=== PATIENT | female | born 1935 | race Caucasian/White ===

== ENCOUNTER 2017-06-28 06:25 | Day surgery (SDC) | payer OTHER ==
[2017-06-27 10:03] VITALS: BMI 27.3
[2017-06-28] MEDS ORDERED: fentaNYL CITRATE 250 MCG/5 ML VIAL ONE (07:02)
[2017-06-28] MEDS ORDERED: ePHEDrine SULFATE 50 MG/1 ML AMPULE ONE (07:02)
[2017-06-28] MEDS ORDERED: PROPOFOL 20 ML ONE ×3 (07:03)
[2017-06-28] MEDS ORDERED: MIDAZOLAM HCL 2 MG/2 ML SINGLE DOSE VIAL ONE (07:03)
[2017-06-28] MEDS ORDERED: SUCCINYLCHOLINE CHLORIDE 200 MG/10 ML VIAL ONE (07:03)
[2017-06-28] MEDS ORDERED: ROCURONIUM BROMIDE 50 MG/5 ML VIAL ONE (07:03)
[2017-06-28] MEDS ORDERED: LIDOCAINE HCL/PF 2% SDV 5ML VIAL ONE (07:04)
[2017-06-28] MEDS ORDERED: KETOROLAC TROMETHAMINE 30 MG/1 ML VIAL ONE (07:04)
[2017-06-28] MEDS ORDERED: DEXAMETHASONE SOD PHOSPHATE 4 MG/1 ML VIAL ONE (07:04)
[2017-06-28] MEDS ORDERED: ceFAZolin SODIUM 1 GM VIAL ONE (07:04)
[2017-06-28] MEDS ORDERED: LIDOCAINE HCL 1%, 10 MG/ML (20ML VIAL) ONE ×3 (07:22→08:20)
[2017-06-28] MEDS ORDERED: LEVOFLOXACIN 500 MG PREMIX BAG IVPB ONE (08:00)
--- NOTE | 2017-06-28 09:05 | HP ---
History & Physical Update - History History: No Change - Physical Physical: No Change - Assessment Assessment: No Change - Plan Plan: No Change
[2017-06-28] MEDS ORDERED: ONDANSETRON 4 MG/2 ML VIAL IVPUSH PRN (09:08)
[2017-06-28] MEDS ORDERED: ACETAMINOPHEN 325 MG TABLET (FP) PO PRN (09:08)
[2017-06-28] MEDS ORDERED: LACTATED RINGERS SOLUTION 1,000 ML IV SCH (09:15)
[2017-06-28 09:17] VITALS: TEMP 98
[2017-06-28 12:34] VITALS: BP 117/55; PULSE 84
--- NOTE | 2017-06-29 07:17 | OP ---
DATE OF OPERATION: 06/28/2017 PREOPERATIVE DIAGNOSIS: Right breast cancer. POSTOPERATIVE DIAGNOSIS: Right breast cancer. PROCEDURE: Right breast reexcision lumpectomy. SURGEON: Dorothy Carl MD ANESTHESIA: Local, IV sedation. ESTIMATED BLOOD LOSS: Minimal. COMPLICATIONS: None. This was a sterile procedure. INDICATION FOR PROCEDURE: Patient had an excision of a mass seen on mammography in the upper outer right breast. Pathology shows a 7-mm invasive ductal carcinoma with a positive margin. Therefore, my recommendation is a reexcision lumpectomy. The procedure was discussed with all the questions answered. PROCEDURE IN DETAIL: Patient brought to [facility], taken into the operating room where after IV sedation and IV antibiotics the right breast was prepped and draped in the usual sterile fashion. The area in the upper outer right breast in the area of the prior incision was anesthetized with 1% lidocaine without epinephrine. The prior incision was sharply reopened and the seroma cavity was entered and suctioned out. A full-thickness lumpectomy was performed to include all the avalos of the prior lumpectomy. This was tagged with a long stitch lateral, short stitch superior and I took it down to Pathology to orient it for them. I felt there was part of the cavity left posteriorly laterally, so I took a new lateral margin with a stitch at the old margin as well as a new inferior margin with a stitch at the old margin. These were all sent to Pathology for permanent section. Hemostasis assured with electrocautery. The parenchyma approximated with interrupted 2-0 Vicryl. Skin approximated with interrupted 2-0 Vicryl, running 4-0 Monocryl. A sterile dressing of a Tegaderm, 4 x 4's applied. She tolerated the procedure well, was taken to recovery in good condition. DOROTHY CARL M.D. [id number]
--- NOTE | 2017-07-02 15:01 | PATH ---
Surgical Pathology Report Patient Name: NHAN THAKUR [facility]. Rec. #: [id number] /Age/Gender: 1935 (Age: 81) / F Account: [id number] Location: [facility] Taken: 06/28/2017 Received: 06/28/2017 Reported: 07/02/2017 Physicians: Dorothy Smith M.D. Specimen(s) Received A: RIGHT BREAST RE-EXCISION LUMPECTOMY B: RIGHT BREAST NEW LATERAL MARIGN C: RIGHT BREAST NEW INFERIOR MARGIN Clinical History Invasive Final Diagnosis A. BREAST, RIGHT, RE-EXCISION LUMPECTOMY: BENIGN BREAST TISSUE WITH STROMAL FIBROSIS AND CHANGES OF PRIOR PROCEDURE. NO CARCINOMA IDENTIFIED. B. BREAST, RIGHT, NEW LATERAL MARGIN, EXCISION: BENIGN BREAST TISSUE WITH CHANGES OF PRIOR PROCEDURE. NO CARCINOMA IDENTIFIED. C. BREAST, RIGHT, NEW INFERIOR MARGIN, EXCISION: BENIGN BREAST TISSUE WITH CHANGES OF PRIOR PROCEDURE. NO CARCINOMA IDENTIFIED. Electronically Signed Monica Ryan M.D. Gross Description A. Received in formalin labeled "right breast reexcision lumpectomy," is a 5.7 x 5.7 x 2.3 cm toney-yellow, irregular portion of fibroadipose tissue with a short suture marking the superior aspect and a long suture marking the lateral aspect of the specimen, per the surgeon. There is no needle localization wire present. There is no skin or nipple present. The specimen displays an exposed biopsy cavity with defects at the deep, inferior and anterior margins. The specimen is inked as follows: Superior and lateral blue; inferior green; medial yellow; anterior red; deep black. The specimen is serially sectioned from medial to lateral. Sectioning reveals foci of fibrous tissue and fat necrosis. No definitive mass is identified. Statistical Methods Teacher sections are submitted in 22 cassettes as follows: 1-medial margin; 2-6-biopsy cavity with anterior margin sequentially submitted from medial to lateral; 7-11-biopsy cavity with deep margin sequentially submitted from medial to lateral; 41-63-fthezlod margin sequentially submitted from medial to lateral; 52-66-nvmrzgsc margin sequentially submitted from medial to lateral; 16-61-lrrtrwn margin. Total formalin fixation time: Approximately 9 hours B. Received in formalin labeled "right breast new lateral margin," is a 2.5 x 2.0 x 0.8 cm irregular portion of fibroadipose tissue with a suture marking the old margin, per the surgeon. The new margin is inked blue and the specimen is serially sectioned. The specimen is entirely submitted in 3 cassettes. C. Received in formalin labeled "right breast new inferior margin," is a 3.5 x 3.2 x 0.8 cm irregular portion of fibroadipose tissue with a suture marking the old margin, per the surgeon. The new margin is inked blue and the specimen is serially sectioned. The specimen is entirely and sequentially submitted in 5 cassettes. 06/28/2017 [facility]06/28/2017
== END 2017-06-28 11:15 | disposition home or self-care (01) ==
LOC: JASU-SURG 06:25
PROVIDERS: ATTEND Surgery
PROC: 0HBT0ZZ Excision of Right Breast, Open Approach (ICD-10-PCS; principal; 2017-06-28 08:00)
DX: C50.911 Malignant neoplasm of unspecified site of right female breast (principal)
CPT/HCPCS: 88307-TC; 94760

== ENCOUNTER 2018-07-24 05:07 | Inpatient (IN) | payer OTHER ==
[2018-07-24 05:46] VITALS: BMI 28.3
[2018-07-24] MEDS ORDERED: SODIUM CHLORIDE 1,000 ML IV STA (05:50)
[2018-07-24 06:14] LABS: BASO % 1.1 % (0-2.0); EOS % 7.2 % (0-4.5); HEMATOCRIT 38.9 % (32.4-45.2); HEMOGLOBIN 13.1 GM/dL (10.7-15.3); LYMPH % 32.6 % (8-40); MCH 30.3 pg (25.7-33.7); MCHC 33.7 g/dl (32.0-36.0); MEAN CELL VOLUME 89.9 fl (80-96); MEAN PLT VOLUME 8.6 fl (7.5-11.1); MONO % 7.5 % (3.8-10.2); NEUT % 51.6 % (42.8-82.8); PLATELET COUNT 292 K/MM3 (134-434); RBC 4.33 M/mm3 (3.60-5.2); RDW 14.6 % (11.6-15.6); WHITE BLOOD COUNT 8.8 K/mm3 (4.0-10.0)
[2018-07-24 06:16] LABS: VENOUS PH 7.4 (7.32-7.42); VENOUS PO2 79.9 mmHg (28-48)
--- NOTE | 2018-07-24 06:23 | PDOC ---
History of Present Illness - General Chief Complaint: Chest Pain Stated Complaint: CHEST DISCOMFORT Time Seen by Provider: 07/24/18 06:00 History Source: Patient Exam Limitations: No Limitations - History of Present Illness Initial Comments: 07/24/18 06:18 82YOF with h/o HTN, CAD, angina now s/p CABG 2 years ago at [facility], echo last week, told she had 2-vessel occlusion, not stented for this per her report. BIBEMS for onset of left-sided chest pressure radiating down LUE which started while at rest at 1 am today, feels exactly the same as her prior angina, and associated with SOB which she also has with her chronic angina. States she has been having angina off and on for the past few years. Took no extra ASA or other medications for her symptoms after the onset. Denies any f/c/n/d/v/c, sweats, weakness, numbness, tingling, neck pain, back pain, headache, vision change, abdominal pain, or other symptoms. Features Reporter is Dr. Rivera. Has only gone to [facility] once or twice for procedures but otherwise gets her cardiac care here. Past History - Past Medical History Allergies/Adverse Reactions: Allergies Allergy/AdvReac Type Severity Reaction Status Date / Time penicillin G Allergy Intermediate Rash Verified 07/24/18 05:46 Sulfa (Sulfonamide Allergy Intermediate Rash Verified 07/24/18 05:46 Antibiotics) [Sulfa(Sulfonamide Antibiotics)] Home Medications: Ambulatory Orders Clonazepam [Klonopin] 1 mg PO BID 07/29/15 Metoprolol Succinate [Toprol XL -] 25 mg PO DAILY 07/29/15 Venlafaxine HCl ER [Effexor Xr -] 150 mg PO DAILY 07/29/15 Quetiapine Fumarate [Seroquel -] 25 mg PO HS 03/18/16 Acetaminophen W/ Codeine #3 [Tylenol # 3 -] 1 - 2 tab PO Q6H PRN #10 tablet MDD 6 pills 06/14/17 Ascorbate Calcium/Bioflavonoid [Maribel-C 1,000 mg Tablet] 500 mg PO DAILY Aspirin [Aspirin EC] 81 mg PO DAILY 06/14/17 Atorvastatin Ca [Lipitor] 40 mg PO DAILY 06/14/17 Mirtazapine 15 mg PO DAILY 06/14/17 Multivit-Min/FA/Lycopen/Lutein [Centrum Silver Tablet] 1 each PO DAILY 06/14/17 Anemia: No Asthma: No Cancer: Yes (LT BREAST) Cardiac Disorders: Yes (h/o palpitations, ARRHYTHMIAS) CVA: No COPD: No CHF: No Dementia: No Diabetes: No GI Disorders: Yes (PEPTIC ULCER, DIVERTICULOSIS, COLON POLYPS) Disorders: No HTN: Yes Hypercholesterolemia: Yes Liver Disease: No Seizures: No Thyroid Disease: No - Surgical History Cardiac Surgery: Yes (BYPASS SURGERY 2016) - Suicide/Smoking/Psychosocial Hx Smoking History: Never smoked Have you smoked in the past 12 months: No Information on smoking cessation initiated: No Hx Alcohol Use: No Drug/Substance Use Hx: No Substance Use Type: None Hx Substance Use Treatment: No Cardiac Specific PMH - Complaint Specific PMHX Pacemaker: No Review of Systems - Review of Systems Able to Perform ROS?: Yes Comments:: 07/24/18 06:32 GEN: no fever, chills, malaise, generalized weakness, or weight change HEENT: no ear pain, sore throat, vision change, or eye pain CV: chest pain, no palpitations, lightheadedness, syncope, or edema RESP: SOB, no cough, no wheezing GI: no abdominal pain, nausea, vomiting, diarrhea, constipation, or white/black/ bloody stool : no dysuria, hematuria, incontinence, retention, bleeding, or discharge MSK: arm pain, no neck/back pain, muscle weakness/pain, or joint swelling/pain NEURO: no headache, seizure, vertigo, numbness, tingling, or focal weakness PSYCH: no substance use, no behavior change SKIN: no jaundice, no rash ROS otherwise negative except as noted in HPI *Physical Exam - Vital Signs Last Vital Signs Temp Pulse Resp BP Pulse Ox 98.3 F 73 19 122/67 97 07/25/18 10:22 07/25/18 10:22 07/25/18 10:22 07/25/18 10:22 07/25/18 09:00 - Physical Exam Comments: 07/24/18 06:32 GENERAL: a bit anxious but well-appearing and comfortable, pleasant, A/Ox4, no distress, answers questions appropriately, resting tremor to head, on nasal cannula 4 LPM satting 96% HEENT: PERRLA, EOMI, moist mucous membranes NECK/BACK: no midline ttp, no spinal stepoff or deformity, no hematoma, full ROM , neck supple CARDIOVASCULAR: regular rate/rhythm, normal S1S2, no MGR, strong peripheral pulses, capillary refill <2 seconds, extremities wwp, no edema LUNGS/RESPIRATORY: no respiratory distress, CTAB GI/ABDOMEN: symmetric ogja-nh-gotc, normoactive BS, soft, no ttp, no midline pulsatile masses : no CVA tenderness EXTREMITIES: no muscle atrophy, no acute deformity SKIN: warm and dry, no pallor, no jaundice, no rash, no bruising, no skin breakdown, no cuts, no lesions NEUROLOGICAL: GCS 15, CN II-XII grossly intact, 5/5 strength proximally and distally, no facial droop Heart Score/ECG Review - History History: Moderately suspicious - Electrocardiogram EKG: Normal - Age Age: >/= 65 - Risk Factors Risk Factors Heart Score: Yes Hx Hypercholesterolemia, Yes Hx Hypertension, No Hx Diabetes, No Smoking History, Yes Positive family hx of cardiac disease, No Hx Obesity Based on the list above the patient has:: >/=3 risk factors or Hx atherosclerotic disease - Troponin Troponin: 1-3x normal limit - Score Heart Score - Total: 6 #1 07/24/18 05:08 NSR, rate 72, normal axis and intervals, deep Q in III and V1 which are old compared with 05/23/17, TWI in III which is old compared with 05/23/17, otherwise no ST-T changes Moderate Sedation - Procedure Monitoring Vital Signs: Procedure Monitoring Vital Signs Temperature 98.3 F 07/25/18 10:22 Pulse Rate 73 07/25/18 10:22 Respiratory Rate 19 07/25/18 10:22 Blood Pressure 122/67 07/25/18 10:22 O2 Sat by Pulse Oximetry (%) 97 07/25/18 09:00 ED Treatment Course - LABORATORY CBC & Chemistry Diagram: 07/24/18 05:50 07/25/18 05:30 - ADDITIONAL ORDERS Additional order review: 07/24/18 05:50 RBC 4.33 MCV 89.9 MCHC 33.7 RDW 14.6 MPV 8.6 Neutrophils % 51.6 Lymphocytes % 32.6 Monocytes % 7.5 Eosinophils % 7.2 H Basophils % 1.1 - RADIOLOGY Radiology Studies Ordered: Category Date Time Status CHEST X-RAY PORTABLE* [RAD] Stat Radiology 07/24/18 05:50 Completed - Medications Given in the ED: ED Medications Discontinued Medications Generic Name Dose Route Start Last Admin Trade Name Santa PRN Reason Stop Dose Admin Aspirin 81 mg 07/24/18 12:00 07/24/18 12:30 Asa - PO 81 mg DAILY AMELIA Administration Furosemide 40 mg 07/24/18 15:02 07/24/18 16:41 Lasix - PO 07/24/18 15:03 40 mg ONCE ONE Administration Sodium Chloride 1,000 mls @ 1,000 mls/hr 07/24/18 05:50 07/24/18 06:19 Normal Saline - IV 07/24/18 06:49 1,000 mls/hr ASDIR STA Administration Medical Decision Making - Medical Decision Making Adult female Pt with known CAD p/w chest pain. Initial Vital Signs Temp Pulse Resp BP Pulse Ox 98 F 73 19 131/56 L 96 07/24/18 05:07 07/24/18 05:07 07/24/18 05:07 07/24/18 05:07 07/24/18 05:07 Exam: As noted in Physical Exam section. DDX IBNLT: ACS, pericarditis, tamponade, aortic dissection, AAA, PTX, PE, esophageal tear, esophagitis (e.g. pill, infectious), esophageal stricture, esophageal FB, gastritis, PUD, pancreatitis, cholecystitis, cholangitis, colitis , bowel perforation, PNA/bronchitis, pleurisy, pleuritis, MVP, pulmonary HTN, musculoskeletal, panic/anxiety, etc. W/U ordered: CBCD CMP Mg Phos Lipase Troponin CK CKMB Coags T&S Blood gas UA UCx EKG CXR. TX ordered: monitor EKG: Reviewed; results as noted in ECG Review section. CXR: Sternal wires noted, cardiomegaly, weak inspiration, nothing acute. Laboratory Tests 07/24/18 07/24/18 07/24/18 05:50 05:50 05:50 WBC 8.8 RBC 4.33 Hgb 13.1 Hct 38.9 MCV 89.9 MCH 30.3 MCHC 33.7 RDW 14.6 Plt Count 292 MPV 8.6 Absolute Neuts (auto) 4.6 Neutrophils % 51.6 Lymphocytes % 32.6 Monocytes % 7.5 Eosinophils % 7.2 H Basophils % 1.1 Nucleated RBC % 0 PT with INR 12.00 INR 1.02 PTT (Actin FS) 31.1 VBG pH POC VBG pCO2 POC VBG pO2 Mixed VBG HCO3 Sodium 140 Potassium 4.2 Chloride 107 Carbon Dioxide 26 Anion Gap 8 BUN 24 H Creatinine 0.9 Creat Clearance w eGFR > 60 Random Glucose 140 H Calcium 9.0 Magnesium 2.3 Total Bilirubin 0.2 AST 19 ALT 30 Alkaline Phosphatase 140 H Creatine Kinase 38 Troponin I 0.04 B-Natriuretic Peptide 170.2 Total Protein 7.6 Albumin 3.3 L Lipase 112 Blood Type Antibody Screen 07/24/18 07/24/18 05:50 05:50 WBC RBC Hgb Hct MCV MCH MCHC RDW Plt Count MPV Absolute Neuts (auto) Neutrophils % Lymphocytes % Monocytes % Eosinophils % Basophils % Nucleated RBC % PT with INR INR PTT (Actin FS) VBG pH 7.40 POC VBG pCO2 40.0 POC VBG pO2 79.9 H Mixed VBG HCO3 24.0 Sodium Potassium Chloride Carbon Dioxide Anion Gap BUN Creatinine Creat Clearance w eGFR Random Glucose Calcium Magnesium Total Bilirubin AST ALT Alkaline Phosphatase Creatine Kinase Troponin I B-Natriuretic Peptide Total Protein Albumin Lipase Blood Type Cancelled Antibody Screen Cancelled 07/24/18 08:[address] Rivera, Dr. Melgar is paged (recycling collections driver). Decision to Admit order placed. Vital Signs Temperature 98 F 07/24/18 05:07 Pulse Rate 75 07/24/18 08:27 Respiratory Rate 19 07/24/18 05:07 Blood Pressure 131/56 L 07/24/18 05:07 O2 Sat by Pulse Oximetry (%) 98 07/24/18 08:27 07/24/18 09:[address] Rivera's office, page sent to Dr. Dean who is recycling collections driver for them now. I also placed a page overhead. 07/24/18 09:[address] Dean and Dr. Baker. Patient admitted to Inpatient Tele, consult order placed. *DC/Admit/Observation/Transfer Diagnosis at time of Disposition: Chest pain Qualifiers: Chest pain type: chest pain due to myocardial ischemia Ischemic chest pain type : stable angina pectoris Qualified Code(s): I20.8 - Other forms of angina pectoris - Discharge Dispostion Condition at time of disposition: Guarded Decision to Admit order: Yes - Referrals - Patient Instructions - Post Discharge Activity
[2018-07-24 06:30] LABS: INR 1.02 (0.83-1.09)
[2018-07-24 06:32] LABS: ACTIVATED PTT 31.1 SECONDS (25.2-36.5)
[2018-07-24 07:41] LABS: ALBUMIN 3.3 g/dl (3.4-5.0); ALK PHOS 140 U/L (45-117); ANION GAP 8 MMOL/L (8-16); BILIRUBIN,TOTAL 0.2 mg/dL (0.2-1); BLOOD UREA NITROGEN 24 mg/dL (7-18); CHLORIDE 107 mmol/L (98-107); CO2 26 mmol/L (21-32); CREATININE 0.9 mg/dL (0.55-1.3); GLUCOSE,RANDOM 140 mg/dL (74-106); LIPASE 112 U/L (73-393); MAGNESIUM 2.3 mg/dL (1.8-2.4); N-TERMINAL BNP 170.2 pg/ml (5-450); POTASSIUM 4.2 mmol/L (3.5-5.1); SGOT/AST 19 U/L (15-37); SGPT/ALT 30 U/L (13-61); SODIUM 140 mmol/L (136-145); TOT PROT 7.6 g/dl (6.4-8.2)
--- NOTE | 2018-07-24 07:44 | PDOC ---
Attending Attestation - Resident Resident Name: Yana Neal - HPI HPI: 07/24/18 09:10 Pt presents to the ED complaining of chest pain that started last night. Pain was pressure like and severe. Patient is now chest pain free. Extensive history of cardiac disease as described in resident note. - Physicial Exam PE: 07/24/18 09:15 Agree with resident exam. PAtient is alert and oriented and in no acute distress. Lungs are clear. Heart regular rate and rhythm. abdomen soft, non tender and non distended. 07/24/18 09:15 - Medical Decision Making 07/24/18 09:19 Pt presents to the ED complaining of chest pain that has now resolved. Extensive history of cardiac disease. EKG shows no evidence of new ischemia. Will check labs and cardiac enzymes, admit to medicine for cardiac work up. Case discussed with Dr. Dean who will evaluate the patient.
--- NOTE | 2018-07-24 11:29 | CON.CARD ---
Consult Consult Specialty:: Cardiology Referred by:: Miguel Baker MD Reason for Consultation:: Chest pain - History of Present Illness Chief Complaint: Chest pain History of Present Illness: 82 yo CAD s/p CABG 06/19/2016 (MORALES->mid LAD, SVG->LAD-D1, SVG-LCx-OM1/OM2 and SVG->RPDA) with neg MPI for ischemia November 06, 2017, recent C 07/2018 demonstrating patent MORALES->LAD, SVG->LCx-OM1/OM2, occluded SVG->LAD-D1, SVG-> RPDA, diastolic dysfunction, hy[ertensive heart disease, hyperlipidemia, moderate carotid stenosis, BPV, GERD, RA, last seen in office 07/11/2018 for persistence of RICE and chest discomfort. She denies palpitations, near or true syncope, orthopnea, PND or LE edema. Intolerance to Ranexa in past? - History Source History Provided By: Patient Limitations to Obtaining History: No Limitations - Past Medical History Cardio/Vascular: Yes: HTN, Hyperlipdemia Pulmonary: Yes: Other (cough) Musculoskeletal: Yes: Chronic low back pain, Osteoarthritis, Other (Upper extremity and thoracic ) Rheumatology: Yes: Vasculitis (vague past Hx?) Dermatology: Yes: Other (pruritis of the LE) - Past Surgical History Past Surgical History: Yes: Breast Biopsy (Lt breast surg) - Alcohol/Substance Use Hx Alcohol Use: No - Smoking History Smoking history: Never smoked Have you smoked in the past 12 months: No Home Medications - Allergies Allergies/Adverse Reactions: Allergies Allergy/AdvReac Type Severity Reaction Status Date / Time penicillin G Allergy Intermediate Rash Verified 07/24/18 05:46 Sulfa (Sulfonamide Allergy Intermediate Rash Verified 07/24/18 05:46 Antibiotics) [Sulfa(Sulfonamide Antibiotics)] - Home Medications Home Medications: Ambulatory Orders Clonazepam [Klonopin] 1 mg PO BID 07/29/15 Metoprolol Succinate [Toprol XL -] 25 mg PO DAILY 07/29/15 Venlafaxine HCl ER [Effexor Xr -] 150 mg PO DAILY 07/29/15 Quetiapine Fumarate [Seroquel -] 25 mg PO HS 03/18/16 Acetaminophen W/ Codeine #3 [Tylenol # 3 -] 1 - 2 tab PO Q6H PRN #10 tablet MDD 6 pills 06/14/17 Ascorbate Calcium/Bioflavonoid [Maribel-C 1,000 mg Tablet] 500 mg PO DAILY Aspirin [Aspirin EC] 81 mg PO DAILY 06/14/17 Atorvastatin Ca [Lipitor] 40 mg PO DAILY 06/14/17 Mirtazapine 15 mg PO DAILY 06/14/17 Multivit-Min/FA/Lycopen/Lutein [Centrum Silver Tablet] 1 each PO DAILY 06/14/17 Review of Systems - Review of Systems Cardiovascular: reports: Chest Pain, Shortness of Breath Respiratory: reports: SOB on Exertion Vital Signs: Vital Signs Temperature 98 F 07/24/18 05:07 Pulse Rate 75 07/24/18 08:27 Respiratory Rate 19 07/24/18 05:07 Blood Pressure 131/56 L 07/24/18 05:07 O2 Sat by Pulse Oximetry (%) 98 07/24/18 08:27 Constitutional: Yes: No Distress, Calm Neck: Yes: Supple Respiratory: Yes: Regular, CTA Bilaterally Gastrointestinal: Yes: Normal Bowel Sounds, Soft Cardiovascular: Yes: Regular Rate and Rhythm JVD: No Carotid Bruit: No Heart Sounds: Yes: S1, S2 Edema: No - Other Data Labs, Other Data: CBC, BMP 07/24/18 05:50 07/24/18 05:50 INR, PTT INR 1.02 (0.83-1.09) 07/24/18 05:50 Troponin, BNP 07/24/18 07/24/18 05:50 09:50 Troponin I 0.04 0.07 H B-Natriuretic Peptide 170.2 Troponin, BNP 07/24/18 07/24/18 05:50 09:50 Troponin I 0.04 0.07 H B-Natriuretic Peptide 170.2 NSR Ejection Fraction %: LVEF > or = 40 % Imaging - Results Chest X-ray: Report Reviewed (NAD) Problem List - Problems (1) Coronary artery disease Code(s): I25.10 - ATHSCL HEART DISEASE OF [place] CORONARY ARTERY W/O ANG PCTRS Qualifiers: Coronary Disease-Associated Artery/Lesion type: [place] artery [place] vs. transplanted heart: [place] heart Associated angina: with stable angina Qualified Code(s): I25.118 - Atherosclerotic heart disease of [place] coronary artery with other forms of angina pectoris (2) S/P CABG (coronary artery bypass graft) Code(s): Z95.1 - PRESENCE OF AORTOCORONARY BYPASS GRAFT (3) Hypertensive heart disease Code(s): I11.9 - HYPERTENSIVE HEART DISEASE WITHOUT HEART FAILURE Qualifiers: Heart failure presence: without heart failure Qualified Code(s): I11.9 - Hypertensive heart disease without heart failure (4) Diastolic dysfunction Code(s): I51.9 - HEART DISEASE, UNSPECIFIED (5) Angina pectoris Code(s): I20.9 - ANGINA PECTORIS, UNSPECIFIED (6) Chest pain Code(s): R07.9 - CHEST PAIN, UNSPECIFIED Qualifiers: Chest pain type: chest pain due to myocardial ischemia Ischemic chest pain type: stable angina pectoris Qualified Code(s): I20.8 - Other forms of angina pectoris (7) Hyperlipidemia Code(s): E78.5 - HYPERLIPIDEMIA, UNSPECIFIED Qualifiers: Hyperlipidemia type: pure hypercholesterolemia Qualified Code(s): E78.00 - Pure hypercholesterolemia, unspecified; E78.0 - Pure hypercholesterolemia (8) SOB (shortness of breath) Code(s): R06.02 - SHORTNESS OF BREATH Assessment/Plan Echo: 10/24/2017 Normal LV size and fxn, LVEF 60-65%, mild LAE, mild-mod MR, TR , RVSP 34 mmHg Pharm stress: 11/06/2017 No ischemia, LVEF 84% 07/2018 LHC: 3 vessel CAD, patent MORALES->LAD, SVG->OM1/OM2, occluded SVG->LAD-D1 , SVG->RPDA 1. Persistent RICE and exterional chest discomfort referable to CAD s/p CABG with occluded SVG->D1, SVG->RPDA, angina pectoris with negative MPI for ischemia 2. Diastolic dysfunction 3. Hypertensive heart disease 4. Mixed hyperlipidemia 5. Glucose interolance 6. Demand ischemia P:1. Trend troponins to document peak 2. Continue ASA 81 qd, Lipitor 40 qd, Imdur 60 qd, d/c HCTZ 25 qd, increase Toprol 50 qd, rechallenge Ranexa 500 bid 3. Given occluded grafts which cannot be revascularized, will optimize medical regimen, consider RCA [employer]EARCH [employer]IMAL ATTENDANT PCI if still symptomatic 4. Thank you for consultative opportunity
--- NOTE | 2018-07-24 11:55 | EKG ---
Test Reason : Blood Pressure : / mmHG Vent. Rate : 072 BPM Atrial Rate : 072 BPM P-R Int : 156 ms QRS Dur : 062 ms QT Int : 400 ms P-R-T Axes : 060 -02 041 degrees QTc Int : 438 ms NORMAL SINUS RHYTHM MINIMAL VOLTAGE CRITERIA FOR LVH, MAY BE NORMAL VARIANT INFERIOR INFARCT , AGE UNDETERMINED ABNORMAL ECG WHEN COMPARED WITH ECG OF 23-MAY-2017 12:09, NO SIGNIFICANT CHANGE WAS FOUND Confirmed by SURYA LIEBERMAN, JONELLE ([id number]) on 07/24/2018 11:54:58 AM Referred By: Confirmed By:JONELLE LONDON MD
[2018-07-24] MEDS ORDERED: ASPIRIN 81 MG CHEWABLE TABLETS PO SCH (12:00)
[2018-07-24] MEDS: RANOLAZINE E.R. 500 MG TABLET (FP) PO SCH ×2 (12:30→21:42)
--- NOTE | 2018-07-24 14:17 | HP ---
Admitting History and Physical - Primary Care Physician PCP: Miguel Baker - Admission Chief Complaint: resting chest pain History of Present Illness: 82YOF with h/o HTN, CAD, angina now s/p CABG 2 years ago at [facility] for onset of resting left-sided chest pressure radiating down LUE which started while at 1 am today while in bed, feels exactly the same as her prior angina. 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 She did feel some improvement with the addition of nitrates but this did not last. She states that she underwent what is described as PTCA sevceral weeks ago that may have shown occlusion of her coronary grafts. Worsening af the anginal Sx developed sometime after the holiday now to the point where it was no longer exertional but at rest which prompted her to come to the ER. The pain was steady, radiating to the LUE and associated with dizziness, sweats. She denies cough, n-v, abd pains , gas, heart burn. History Source: Patient Limitations to Obtaining History: No Limitations - Past Medical History Cardiovascular: Yes: HTN, Hyperlipdemia Pulmonary: Yes: Other (cough) Gastrointestinal: Yes: GERD Heme/Onc: Yes: Cancer (Breast), Other (Hx Lt breast cancer) Psych: Yes: Anxiety Musculoskeletal: Yes: Chronic low back pain, Osteoarthritis, Other (Upper extremity and thoracic ) Rheumatology: Yes: Vasculitis (vague past Hx?) Endocrine: Yes: Other (Glucose intolerance) Dermatology: Yes: Other (pruritis of the LE) - Past Surgical History Past Surgical History: Yes: Breast Biopsy (Lt breast surg), CABG - Smoking History Smoking history: Never smoked Have you smoked in the past 12 months: No - Alcohol/Substance Use Hx Alcohol Use: No History of Substance Use: reports: None - Social History Usual Living Arrangement: Yes: With Spouse ADL: Family Assistance History of Recent Travel: No Home Medications - Allergies Allergies/Adverse Reactions: Allergies Allergy/AdvReac Type Severity Reaction Status Date / Time penicillin G Allergy Intermediate Rash Verified 07/24/18 05:46 Sulfa (Sulfonamide Allergy Intermediate Rash Verified 07/24/18 05:46 Antibiotics) [Sulfa(Sulfonamide Antibiotics)] - Home Medications Home Medications: Ambulatory Orders Clonazepam [Klonopin] 1 mg PO BID 07/29/15 Metoprolol Succinate [Toprol XL -] 25 mg PO DAILY 07/29/15 Venlafaxine HCl ER [Effexor Xr -] 150 mg PO DAILY 07/29/15 Quetiapine Fumarate [Seroquel -] 25 mg PO HS 03/18/16 Acetaminophen W/ Codeine #3 [Tylenol # 3 -] 1 - 2 tab PO Q6H PRN #10 tablet MDD 6 pills 06/14/17 Ascorbate Calcium/Bioflavonoid [Maribel-C 1,000 mg Tablet] 500 mg PO DAILY Aspirin [Aspirin EC] 81 mg PO DAILY 06/14/17 Atorvastatin Ca [Lipitor] 40 mg PO DAILY 06/14/17 Mirtazapine 15 mg PO DAILY 06/14/17 Multivit-Min/FA/Lycopen/Lutein [Centrum Silver Tablet] 1 each PO DAILY 06/14/17 Family Disease History - Family Disease History Family History: Unremarkable Review of Systems - Review of Systems Constitutional: reports: Diaphoresis Eyes: reports: No Symptoms HENT: reports: No Symptoms Neck: reports: No Symptoms Cardiovascular: reports: Chest Pain Respiratory: reports: SOB Gastrointestinal: reports: No Symptoms Genitourinary: reports: Dysuria (? UTI) Breasts: reports: No Symptoms Reported Musculoskeletal: reports: No Symptoms Integumentary: reports: No Symptoms Neurological: reports: No Symptoms Endocrine: reports: No Symptoms Hematology/Lymphatic: reports: No Symptoms Psychiatric: reports: Anxiety Physical Examination Vital Signs: Vital Signs Temperature 98.2 F 07/24/18 13:37 Pulse Rate 75 07/24/18 13:37 Respiratory Rate 20 07/24/18 13:37 Blood Pressure 133/66 07/24/18 13:37 O2 Sat by Pulse Oximetry (%) 97 07/24/18 13:37 Findings/Remarks: skin--no rashes eyes--EOMI, anicteric oral--no droop; NL mucosa neck--supple, no masses lungs--no rales, unlabored heart--distant chest--OHS abd--obese, benign, NT, ND /rect--deferred ext--trace edema; warm to touch; no ischemic changes; periph pedal pulses dimnished neuro--alert, anxious, coherent; good eye contact; no gross motor/sens deficits Labs: CBC, BMP 07/24/18 05:50 07/24/18 05:50 Imaging - Results Chest X-ray: Report Reviewed EKG: Report Reviewed Problem List - Problems (1) Angina pectoris Assessment/Plan: 2nd ischemia (occluded grafts--2 of 5?); PLAN: maximize anti-anginal agents as per cardio no need for a/c (not CS). PLAN: cont BB; Ntg; watch troponin; cont Statin Code(s): I20.9 - ANGINA PECTORIS, UNSPECIFIED (2) Hypertensive heart disease Assessment/Plan: adjust meds as needed (see cardio note) Code(s): I11.9 - HYPERTENSIVE HEART DISEASE WITHOUT HEART FAILURE Qualifiers: Heart failure presence: without heart failure Qualified Code(s): I11.9 - Hypertensive heart disease without heart failure (3) S/P CABG (coronary artery bypass graft) Assessment/Plan: 2 years ago; but has been plagued with anginal Sx in the past several months. recent angiogram reveals 2 of the 5 vessels occluded. Code(s): Z95.1 - PRESENCE OF AORTOCORONARY BYPASS GRAFT (4) Breast cancer Assessment/Plan: Dx'd 1 year ago; recent mammogram was "negative" (under care of oncologist) PLAN : cont Arimidex Code(s): C50.919 - MALIGNANT NEOPLASM OF UNSP SITE OF UNSPECIFIED FEMALE BREAST Qualifiers: Breast location: unspecified site of breast Estrogen receptor status: positive Patient sex: female Laterality: unspecified laterality Qualified Code(s): C50.919 - Malignant neoplasm of unspecified site of unspecified female breast; Z17.0 - Estrogen receptor positive status [ER+] (5) Hyperlipidemia Assessment/Plan: cont statin; may need top dose; check level Code(s): E78.5 - HYPERLIPIDEMIA, UNSPECIFIED Qualifiers: Hyperlipidemia type: pure hypercholesterolemia Qualified Code(s): E78.00 - Pure hypercholesterolemia, unspecified; E78.0 - Pure hypercholesterolemia (6) UTI (urinary tract infection) Assessment/Plan: had been just rx'd AB; has no SX; will check UA Code(s): N39.0 - URINARY TRACT INFECTION, SITE NOT SPECIFIED Qualifiers: Indwelling urinary catheter type: unspecified (7) Glucose intolerance (impaired glucose tolerance) Assessment/Plan: A1c had been under 7.0; will recheck; may need tighter control if A1c 7 or above Code(s): R73.02 - IMPAIRED GLUCOSE TOLERANCE (ORAL) (8) Anxiety Assessment/Plan: with panic features and depressive component; will cont all Psych meds Code(s): F41.9 - ANXIETY DISORDER, UNSPECIFIED Assessment/Plan 82YOF with h/o HTN, CAD, with unstable angina s/p CABG who now has 2-vessel occlusion, who wiull need med adjustment prior to contemplating any additional procedure ~~~~~~~~~~~~~~~~~~~ Dr Baker.
[2018-07-24] MEDS ORDERED: NITROGLYCERIN SUBLINGUAL 1/200 0.3 MG BTL SL PRN (14:57)
[2018-07-24] MEDS ORDERED: FUROSEMIDE 40 MG TABLET (FP) PO ONE (15:02)
[2018-07-24] MEDS ORDERED: ALPRAZolam 0.25 MG TABLET PO PRN (15:04)
[2018-07-24] MEDS: clonazePAM 0.5 MG TABLET PO SCH ×2 (15:04→21:42)
[2018-07-24] MEDS: ISOSORBIDE MONONITRATE 60 MG TAB.SR.24H (FP) PO SCH (17:05)
[2018-07-24] MEDS ORDERED: FUROSEMIDE 40 MG/4 ML INJECTABLE VIAL ONE (17:39)
[2018-07-24 18:31] LABS: URINE APPEARANCE CLEAR; URINE BILIRUBIN NEGATIVE (<2.0 mg/dL); URINE COLOR STRAW; URINE GLUCOSE (UA) NEGATIVE (NEGATIVE); URINE KETONE NEGATIVE (NEGATIVE); URINE LEUK ESTERASE NEGATIVE (NEGATIVE); URINE NITRITE NEGATIVE (NEGATIVE); URINE PROTEIN NEGATIVE (NEGATIVE); URINE UROBILINOGEN NEGATIVE mg/dL (0.2-1.0)
[2018-07-24] MEDS: ATORVASTATIN CA 40 MG TABLET (FP) PO SCH (21:42)
[2018-07-24] MEDS: MIRTAZAPINE 15 MG TABLET (FP) PO SCH (21:43)
[2018-07-24] MEDS: QUEtiapine FUMARATE 25 MG TABLET (FP) PO SCH (21:49)
[2018-07-25 07:08] LABS: ANION GAP 6 MMOL/L (8-16); BLOOD UREA NITROGEN 19 mg/dL (7-18); CALCIUM 9.3 mg/dL (8.5-10.1); CHLORIDE 104 mmol/L (98-107); CO2 30 mmol/L (21-32); CREATININE 0.9 mg/dL (0.55-1.3); GLUCOSE,RANDOM 119 mg/dL (74-106); POTASSIUM 4.3 mmol/L (3.5-5.1); SODIUM 140 mmol/L (136-145)
[2018-07-25] MEDS ORDERED: LOSARTAN POTASSIUM 50 MG TABLET (FP) PO SCH (10:00)
[2018-07-25] MEDS: VENLAFAXINE HCL 75 MG E.R. CAPSULES (FP) PO SCH (10:21)
[2018-07-25] MEDS: clonazePAM 0.5 MG TABLET PO SCH ×2 (10:21→22:47)
[2018-07-25] MEDS: RANOLAZINE E.R. 500 MG TABLET (FP) PO SCH ×2 (10:21→22:47)
[2018-07-25] MEDS: ANASTROZOLE 1 MG TABLET PO SCH (10:21)
[2018-07-25] MEDS: ASPIRIN 325 MG ENTERIC COATED TABLET (FP) PO SCH (10:21)
[2018-07-25] MEDS: CLOPIDOGREL BISULFATE 75 MG TABLET (FP) PO SCH (10:21)
--- NOTE | 2018-07-25 12:25 | PN ---
Progress Note, Physician History of Present Illness: Denies RICE or angina with ambulation. - Current Medication List Current Medications: Active Medications Alprazolam (Xanax -) 0.25 mg PO DAILY PRN PRN Reason: ANXIETY Anastrozole (Arimidex -) 1 mg PO DAILY [facility] Last Admin: 07/25/18 10:21 Dose: 1 mg Aspirin (Ecotrin -) 325 mg PO DAILY [facility] Last Admin: 07/25/18 10:21 Dose: 325 mg Atorvastatin Calcium (Lipitor -) 40 mg PO HS [facility] Last Admin: 07/24/18 21:42 Dose: 40 mg Clonazepam (Klonopin -) 0.5 mg PO BID [facility] Last Admin: 07/25/18 10:21 Dose: 0.5 mg Clopidogrel Bisulfate (Plavix -) 75 mg PO DAILY [facility] Last Admin: 07/25/18 10:21 Dose: 75 mg Isosorbide Mononitrate (Imdur -) 60 mg PO DAILY@1700 [facility] Last Admin: 07/24/18 17:05 Dose: 60 mg Losartan Potassium (Cozaar -) 50 mg PO DAILY [facility] Last Admin: 07/25/18 10:21 Dose: 50 mg Metoprolol Succinate (Toprol Xl -) 50 mg PO DAILY [facility] Last Admin: 07/25/18 10:21 Dose: 50 mg Mirtazapine (Remeron -) 7.5 mg PO [facility] Last Admin: 07/24/18 21:43 Dose: 7.5 mg Nitroglycerin (Nitrostat -) 0.3 mg SL Q5M PRN PRN Reason: FOR CHEST PAIN Quetiapine Fumarate (Seroquel -) 25 mg PO [facility] Last Admin: 07/24/18 21:49 Dose: Not Given Ranolazine (Ranexa -) 500 mg PO BID [facility] Last Admin: 07/25/18 10:21 Dose: 500 mg Venlafaxine HCl (Effexor Xr -) 150 mg PO DAILY [facility] Last Admin: 07/25/18 10:21 Dose: 150 mg - Objective Vital Signs: Vital Signs Temperature 98.3 F 07/25/18 10:22 Pulse Rate 73 07/25/18 10:22 Respiratory Rate 19 07/25/18 10:22 Blood Pressure 122/67 07/25/18 10:22 O2 Sat by Pulse Oximetry (%) 97 07/25/18 09:00 Constitutional: Yes: No Distress, Calm Neck: Yes: Supple Cardiovascular: Yes: Regular Rate and Rhythm Respiratory: Yes: Regular, CTA Bilaterally Gastrointestinal: Yes: Normal Bowel Sounds, Soft Edema: No Labs: CBC, BMP 07/24/18 05:50 07/25/18 05:30 INR, PTT INR 1.02 (0.83-1.09) 07/24/18 05:50 Problem List - Problems (1) Coronary artery disease Code(s): I25.10 - ATHSCL HEART DISEASE OF [place] CORONARY ARTERY W/O ANG PCTRS Qualifiers: Coronary Disease-Associated Artery/Lesion type: [place] artery [place] vs. transplanted heart: [place] heart Associated angina: with stable angina Qualified Code(s): I25.118 - Atherosclerotic heart disease of [place] coronary artery with other forms of angina pectoris (2) S/P CABG (coronary artery bypass graft) Code(s): Z95.1 - PRESENCE OF AORTOCORONARY BYPASS GRAFT (3) Hypertensive heart disease Code(s): I11.9 - HYPERTENSIVE HEART DISEASE WITHOUT HEART FAILURE Qualifiers: Heart failure presence: without heart failure Qualified Code(s): I11.9 - Hypertensive heart disease without heart failure (4) Diastolic dysfunction Code(s): I51.9 - HEART DISEASE, UNSPECIFIED (5) Angina pectoris Code(s): I20.9 - ANGINA PECTORIS, UNSPECIFIED (6) Chest pain Code(s): R07.9 - CHEST PAIN, UNSPECIFIED Qualifiers: Chest pain type: chest pain due to myocardial ischemia Ischemic chest pain type: stable angina pectoris Qualified Code(s): I20.8 - Other forms of angina pectoris (7) Hyperlipidemia Code(s): E78.5 - HYPERLIPIDEMIA, UNSPECIFIED Qualifiers: Hyperlipidemia type: pure hypercholesterolemia Qualified Code(s): E78.00 - Pure hypercholesterolemia, unspecified; E78.0 - Pure hypercholesterolemia (8) SOB (shortness of breath) Code(s): R06.02 - SHORTNESS OF BREATH Assessment/Plan Echo: 10/24/2017 Normal LV size and fxn, LVEF 60-65%, mild LAE, mild-mod MR, TR , RVSP 34 mmHg Pharm stress: 11/06/2017 No ischemia, LVEF 84% 07/2018 LHC: 3 vessel CAD, patent MORALES->LAD, SVG->OM1/OM2, occluded SVG->LAD-D1 , SVG->RPDA 1. Persistent RICE and exterional chest discomfort referable to CAD s/p CABG with occluded SVG->D1, SVG->RPDA, angina pectoris with negative MPI for ischemia 2. Diastolic dysfunction 3. Hypertensive heart disease 4. Mixed hyperlipidemia 5. Glucose interolance 6. Demand ischemia P:1. Troponins have peaked 2. Continue ASA 81 qd, Lipitor 40 qd, Plavix 75 qd, Imdur 60 qd, losartan 50 qd , increased Toprol 50 qd and rechallenged Ranexa 500 bid, start Vascepa 2 bid as outpatient 3. Given occluded grafts which cannot be revascularized, will optimize medical regimen, consider RCA ANATOMY PROFESSOR PCI if still symptomatic
[2018-07-25] MEDS ORDERED: ACETAMINOPHEN 500 MG TABLET (FP) PO ONE (15:00)
[2018-07-25] MEDS: ISOSORBIDE MONONITRATE 60 MG TAB.SR.24H (FP) PO SCH ×2 (17:34→17:42)
--- NOTE | 2018-07-25 17:45 | PN ---
Progress Note (short form) - Note Progress Note: Current Medications Alprazolam (Xanax -) 0.25 mg PO DAILY PRN PRN Reason: ANXIETY Anastrozole (Arimidex -) 1 mg PO DAILY [facility] Last Admin: 07/25/18 10:21 Dose: 1 mg Aspirin (Ecotrin -) 325 mg PO DAILY [facility] Last Admin: 07/25/18 10:21 Dose: 325 mg Atorvastatin Calcium (Lipitor -) 40 mg PO HS [facility] Last Admin: 07/24/18 21:42 Dose: 40 mg Clonazepam (Klonopin -) 0.5 mg PO BID [facility] Last Admin: 07/25/18 10:21 Dose: 0.5 mg Clopidogrel Bisulfate (Plavix -) 75 mg PO DAILY [facility] Last Admin: 07/25/18 10:21 Dose: 75 mg Isosorbide Mononitrate (Imdur -) 60 mg PO DAILY@1700 [facility] Last Admin: 07/25/18 17:34 Dose: 60 mg Losartan Potassium (Cozaar -) 50 mg PO DAILY [facility] Last Admin: 07/25/18 10:21 Dose: 50 mg Metoprolol Succinate (Toprol Xl -) 50 mg PO DAILY [facility] Last Admin: 07/25/18 10:21 Dose: 50 mg Mirtazapine (Remeron -) 7.5 mg PO [facility] Last Admin: 07/24/18 21:43 Dose: 7.5 mg Nitroglycerin (Nitrostat -) 0.3 mg SL Q5M PRN PRN Reason: FOR CHEST PAIN Quetiapine Fumarate (Seroquel -) 25 mg PO [facility] Last Admin: 07/24/18 21:49 Dose: Not Given Ranolazine (Ranexa -) 500 mg PO BID [facility] Last Admin: 07/25/18 10:21 Dose: 500 mg Venlafaxine HCl (Effexor Xr -) 150 mg PO DAILY [facility] Last Admin: 07/25/18 10:21 Dose: 150 mg Laboratory Results - last 24 hr 07/24/18 07/25/18 07/25/18 15:45 05:30 05:30 Sodium 140 Potassium 4.3 Chloride 104 Carbon Dioxide 30 Anion Gap 6 L BUN 19 H Creatinine 0.9 Creat Clearance w eGFR > 60 Random Glucose 119 H Hemoglobin A1c % Calcium 9.3 Troponin I < 0.02 Triglycerides 206 H Cholesterol 120 Total LDL Cholesterol 65 HDL Cholesterol 31 L TSH 3.87 H Urine Color Straw Urine Appearance Clear Urine pH 7.0 Ur Specific [place] 1.011 Urine Protein Negative Urine Glucose (UA) Negative Urine Ketones Negative Urine Blood Negative Urine Nitrite Negative Urine Bilirubin Negative Urine Urobilinogen Negative Ur Leukocyte Esterase Negative 07/25/18 05:30 Sodium Potassium Chloride Carbon Dioxide Anion Gap BUN Creatinine Creat Clearance w eGFR Random Glucose Hemoglobin A1c % 6.8 H Calcium Troponin I Triglycerides Cholesterol Total LDL Cholesterol HDL Cholesterol TSH Urine Color Urine Appearance Urine pH Ur Specific [place] Urine Protein Urine Glucose (UA) Urine Ketones Urine Blood Urine Nitrite Urine Bilirubin Urine Urobilinogen Ur Leukocyte Esterase Vital Signs Temperature 97.9 F 07/25/18 14:42 Pulse Rate 68 07/25/18 14:42 Respiratory Rate 18 07/25/18 14:42 Blood Pressure 114/45 L 07/25/18 14:42 O2 Sat by Pulse Oximetry (%) 97 07/25/18 09:00 CC: anxious ``````````````````` skin--NL color; no rashes eyes--EOMI lungs--clear heart--RR ext--trace edema bilat neuro--awake, coherent, no deficits; mood guarded; able to walk on her own; ambulated 100ft and did not develop CP; did feel some SOB at the end of the walk. `````````````````````````` Summ > angina--no resting episodes today; trop all negative; no CP on ambulation as of this time. PLAN: cont current agents > HTN with ASHD--no CHF; BP on low end biut w/o Sx; will stop the ARB for now > DM--vs Pre-DM; a1c is 6.8 and is not on restricted diet so far. PLAN: will check BGMs not on diabetic agent or diet > elevated TSH--mild; t4 level added ``````````````````` Dr Baker Problem List - Problems (1) Angina pectoris Code(s): I20.9 - ANGINA PECTORIS, UNSPECIFIED (2) Hypertensive heart disease Code(s): I11.9 - HYPERTENSIVE HEART DISEASE WITHOUT HEART FAILURE Qualifiers: Heart failure presence: without heart failure Qualified Code(s): I11.9 - Hypertensive heart disease without heart failure (3) S/P CABG (coronary artery bypass graft) Code(s): Z95.1 - PRESENCE OF AORTOCORONARY BYPASS GRAFT (4) Breast cancer Code(s): C50.919 - MALIGNANT NEOPLASM OF UNSP SITE OF UNSPECIFIED FEMALE BREAST Qualifiers: Breast location: unspecified site of breast Estrogen receptor status: positive Patient sex: female Laterality: unspecified laterality Qualified Code(s): C50.919 - Malignant neoplasm of unspecified site of unspecified female breast; Z17.0 - Estrogen receptor positive status [ER+] (5) Hyperlipidemia Code(s): E78.5 - HYPERLIPIDEMIA, UNSPECIFIED Qualifiers: Hyperlipidemia type: pure hypercholesterolemia Qualified Code(s): E78.00 - Pure hypercholesterolemia, unspecified; E78.0 - Pure hypercholesterolemia (6) UTI (urinary tract infection) Code(s): N39.0 - URINARY TRACT INFECTION, SITE NOT SPECIFIED Qualifiers: Indwelling urinary catheter type: unspecified (7) Glucose intolerance (impaired glucose tolerance) Code(s): R73.02 - IMPAIRED GLUCOSE TOLERANCE (ORAL) (8) Anxiety Code(s): F41.9 - ANXIETY DISORDER, UNSPECIFIED
[2018-07-25] MEDS: QUEtiapine FUMARATE 25 MG TABLET (FP) PO SCH (22:47)
[2018-07-25] MEDS: ATORVASTATIN CA 40 MG TABLET (FP) PO SCH (22:47)
[2018-07-25] MEDS: MIRTAZAPINE 15 MG TABLET (FP) PO SCH (22:47)
[2018-07-26 08:45] LABS: ALBUMIN 3.4 g/dl (3.4-5.0); ALK PHOS 130 U/L (45-117); ANION GAP 9 MMOL/L (8-16); BILIRUBIN,TOTAL 0.6 mg/dL (0.2-1); BLOOD UREA NITROGEN 28 mg/dL (7-18); CALCIUM 9.3 mg/dL (8.5-10.1); CHLORIDE 103 mmol/L (98-107); CO2 27 mmol/L (21-32); GLUCOSE,RANDOM 101 mg/dL (74-106); POTASSIUM 4.4 mmol/L (3.5-5.1); SGOT/AST 14 U/L (15-37); SGPT/ALT 23 U/L (13-61); SODIUM 139 mmol/L (136-145); TOT PROT 7.4 g/dl (6.4-8.2)
--- NOTE | 2018-07-26 10:57 | PN ---
Progress Note, Physician Chief Complaint: Events noted Not in distress History of Present Illness: Patient was seen and examined. Awake and alert. Chart was reviewed Denies chest pain, SOB or palpitations - Current Medication List Current Medications: Active Medications Alprazolam (Xanax -) 0.25 mg PO DAILY PRN PRN Reason: ANXIETY Anastrozole (Arimidex -) 1 mg PO DAILY [facility] Last Admin: 07/25/18 10:21 Dose: 1 mg Aspirin (Ecotrin -) 325 mg PO DAILY [facility] Last Admin: 07/25/18 10:21 Dose: 325 mg Atorvastatin Calcium (Lipitor -) 40 mg PO HS [facility] Last Admin: 07/25/18 22:47 Dose: 40 mg Clonazepam (Klonopin -) 0.5 mg PO BID [facility] Last Admin: 07/25/18 22:47 Dose: 0.5 mg Clopidogrel Bisulfate (Plavix -) 75 mg PO DAILY [facility] Last Admin: 07/25/18 10:21 Dose: 75 mg Isosorbide Mononitrate (Imdur -) 60 mg PO DAILY@1700 [facility] Last Admin: 07/25/18 17:42 Dose: Not Given Metoprolol Succinate (Toprol Xl -) 50 mg PO DAILY [facility] Last Admin: 07/25/18 10:21 Dose: 50 mg Mirtazapine (Remeron -) 7.5 mg PO [facility] Last Admin: 07/25/18 22:47 Dose: 7.5 mg Nitroglycerin (Nitrostat -) 0.3 mg SL Q5M PRN PRN Reason: FOR CHEST PAIN Quetiapine Fumarate (Seroquel -) 25 mg PO [facility] Last Admin: 07/25/18 22:47 Dose: Not Given Ranolazine (Ranexa -) 500 mg PO BID [facility] Last Admin: 07/25/18 22:47 Dose: 500 mg Venlafaxine HCl (Effexor Xr -) 150 mg PO DAILY [facility] Last Admin: 07/25/18 10:21 Dose: 150 mg - Objective Vital Signs: Vital Signs Temperature 97.2 F L 07/26/18 06:18 Pulse Rate 67 07/26/18 06:18 Respiratory Rate 16 07/26/18 06:18 Blood Pressure 104/59 L 07/26/18 06:18 O2 Sat by Pulse Oximetry (%) 98 07/25/18 21:00 Eyes: Yes: PERRL HENT: Yes: Atraumatic Neck: Yes: Supple Cardiovascular: Yes: Regular Rate and Rhythm, S1, S2. No: Murmur Respiratory: Yes: CTA Bilaterally Gastrointestinal: Yes: Normal Bowel Sounds, Soft. No: Tenderness Edema: No Additional Findings/Remarks: - Review of Systems Constitutional: denies: Chills, Fever Cardiovascular: denies: Chest Pain. denies: Palpitations, Shortness of Breath Respiratory: denies: Cough. denies: Hemoptysis, Orthopnea, PND, SOB, SOB on Exertion Gastrointestinal: denies: Abdominal Pain, Constipation, Diarrhea, Melena, Nausea , Rectal Bleeding, Vomiting Neurological: denies: Dizziness, Headache, Seizure, Syncope Labs: 07/26/18 06:00 Problem List - Problems (1) Angina pectoris Code(s): I20.9 - ANGINA PECTORIS, UNSPECIFIED (2) Coronary artery disease Code(s): I25.10 - ATHSCL HEART DISEASE OF [place] CORONARY ARTERY W/O ANG PCTRS Qualifiers: Coronary Disease-Associated Artery/Lesion type: [place] artery [place] vs. transplanted heart: [place] heart Associated angina: with stable angina Qualified Code(s): I25.118 - Atherosclerotic heart disease of [place] coronary artery with other forms of angina pectoris (3) Diastolic dysfunction Code(s): I51.9 - HEART DISEASE, UNSPECIFIED (4) Glucose intolerance (impaired glucose tolerance) Code(s): R73.02 - IMPAIRED GLUCOSE TOLERANCE (ORAL) (5) Hypertensive heart disease Code(s): I11.9 - HYPERTENSIVE HEART DISEASE WITHOUT HEART FAILURE Qualifiers: Heart failure presence: without heart failure Qualified Code(s): I11.9 - Hypertensive heart disease without heart failure (6) S/P CABG (coronary artery bypass graft) Code(s): Z95.1 - PRESENCE OF AORTOCORONARY BYPASS GRAFT Assessment/Plan 1. Persistent RICE and chest discomfort referable to CAD s/p CABG with occluded SVG to D1, SVG to RPDA, angina pectoris 2. Diastolic dysfunction 3. Hypertensive heart disease 4. Hypercholesterolemia 5. Glucose interolance 6. Demand ischemia PLAN: 1. Troponins noted 2. Continue ASA, Lipitor, Plavix, Imdur, Losartan, Toprol and Ranexa as tolerated 3. Optimize medical therapy as vein grafts are occluded. If patient continues to be symptomatic, may consider RCA BLOOD BANK SPECIALIST intervention 4. Ambulate Further plans are to follow Ramone Melgar MD
[2018-07-26] MEDS: VENLAFAXINE HCL 75 MG E.R. CAPSULES (FP) PO SCH (10:58)
[2018-07-26] MEDS: ASPIRIN 325 MG ENTERIC COATED TABLET (FP) PO SCH (10:59)
[2018-07-26] MEDS: clonazePAM 0.5 MG TABLET PO SCH ×2 (10:59→21:47)
[2018-07-26] MEDS: CLOPIDOGREL BISULFATE 75 MG TABLET (FP) PO SCH (10:59)
[2018-07-26] MEDS: ANASTROZOLE 1 MG TABLET PO SCH (10:59)
[2018-07-26] MEDS: RANOLAZINE E.R. 500 MG TABLET (FP) PO SCH ×2 (10:59→21:47)
[2018-07-26] MEDS ORDERED: ACETAMINOPHEN 500 MG TABLET (FP) PO ONE (12:30)
[2018-07-26] MEDS ORDERED: ACETAMINOPHEN 325 MG TABLET (FP) PO PRN (14:13)
--- NOTE | 2018-07-26 14:23 | PN ---
Progress Note (short form) - Note Progress Note: Current Medications Acetaminophen (Tylenol -) 650 mg PO Q6H PRN PRN Reason: PAIN LEVEL 1 - 3 Alprazolam (Xanax -) 0.25 mg PO DAILY PRN PRN Reason: ANXIETY Anastrozole (Arimidex -) 1 mg PO DAILY [facility] Last Admin: 07/26/18 10:59 Dose: 1 mg Aspirin (Ecotrin -) 325 mg PO DAILY [facility] Last Admin: 07/26/18 10:59 Dose: 325 mg Atorvastatin Calcium (Lipitor -) 40 mg PO HS [facility] Last Admin: 07/25/18 22:47 Dose: 40 mg Clonazepam (Klonopin -) 0.5 mg PO BID [facility] Last Admin: 07/26/18 10:59 Dose: 0.5 mg Clopidogrel Bisulfate (Plavix -) 75 mg PO DAILY [facility] Last Admin: 07/26/18 10:59 Dose: 75 mg Isosorbide Mononitrate (Imdur -) 30 mg PO [facility] Metoprolol Succinate (Toprol Xl -) 50 mg PO DAILY [facility] Last Admin: 07/26/18 10:59 Dose: 50 mg Mirtazapine (Remeron -) 7.5 mg PO HS [facility] Last Admin: 07/25/18 22:47 Dose: 7.5 mg Nitroglycerin (Nitrostat -) 0.3 mg SL Q5M PRN PRN Reason: FOR CHEST PAIN Quetiapine Fumarate (Seroquel -) 25 mg PO [facility] Last Admin: 07/25/18 22:47 Dose: Not Given Ranolazine (Ranexa -) 500 mg PO BID [facility] Last Admin: 07/26/18 10:59 Dose: 500 mg Venlafaxine HCl (Effexor Xr -) 150 mg PO DAILY [facility] Last Admin: 07/26/18 10:58 Dose: 150 mg Laboratory Results - last 24 hr 07/26/18 07/26/18 06:00 06:04 Sodium 139 Potassium 4.4 Chloride 103 Carbon Dioxide 27 Anion Gap 9 BUN 28 H Creatinine 1.0 Creat Clearance w eGFR 53.35 POC Glucometer 124 Random Glucose 101 Calcium 9.3 Total Bilirubin 0.6 AST 14 L ALT 23 Alkaline Phosphatase 130 H Total Protein 7.4 Albumin 3.4 Vital Signs Temperature 97.2 F L 07/26/18 10:00 Pulse Rate 72 07/26/18 10:00 Respiratory Rate 18 07/26/18 10:00 Blood Pressure 110/58 L 07/26/18 10:00 O2 Sat by Pulse Oximetry (%) 98 07/26/18 10:00 CC: anxious, but no resting angina; no BMs x 2 days ``````````````````` skin--NL color; no rashes eyes--EOMI lungs--clear heart--RR ext--trace edema bilat neuro--awake, coherent, no deficits; mood guarded; able to walk on her own; ambulated 100ft and did not develop CP; did feel some SOB at the end of the walk. `````````````````````````` Summ > angina--no resting episodes into today; trop all negative; no CP on ambulation but has some SOB. PLAN: cont current agents > Hypotension--SBP went below 100 yesterday; NTG held and ARB stopped; BP better today; will resume Imdur at HS at 30mg > ASHD--no CHF; BP on low end w/o Sx; will stop the ARB: PLAN; await Cardio's decision on disposition > azotemia--mild rise in [place]; no diuretics given yesterday or today > constip--rx colace & Miralax > DM--vs Pre-DM; a1c is 6.8 and is not on restricted diet so far. PLAN: will check BGMs not on diabetic agent or diet > elevated TSH--mild ``````````````````` Dr Baker Problem List - Problems (1) Angina pectoris Code(s): I20.9 - ANGINA PECTORIS, UNSPECIFIED (2) Hypertensive heart disease Code(s): I11.9 - HYPERTENSIVE HEART DISEASE WITHOUT HEART FAILURE Qualifiers: Heart failure presence: without heart failure Qualified Code(s): I11.9 - Hypertensive heart disease without heart failure (3) S/P CABG (coronary artery bypass graft) Code(s): Z95.1 - PRESENCE OF AORTOCORONARY BYPASS GRAFT (4) Breast cancer Code(s): C50.919 - MALIGNANT NEOPLASM OF UNSP SITE OF UNSPECIFIED FEMALE BREAST Qualifiers: Breast location: unspecified site of breast Estrogen receptor status: positive Patient sex: female Laterality: unspecified laterality Qualified Code(s): C50.919 - Malignant neoplasm of unspecified site of unspecified female breast; Z17.0 - Estrogen receptor positive status [ER+] (5) Hyperlipidemia Code(s): E78.5 - HYPERLIPIDEMIA, UNSPECIFIED Qualifiers: Hyperlipidemia type: pure hypercholesterolemia Qualified Code(s): E78.00 - Pure hypercholesterolemia, unspecified; E78.0 - Pure hypercholesterolemia (6) UTI (urinary tract infection) Code(s): N39.0 - URINARY TRACT INFECTION, SITE NOT SPECIFIED Qualifiers: Indwelling urinary catheter type: unspecified (7) Glucose intolerance (impaired glucose tolerance) Code(s): R73.02 - IMPAIRED GLUCOSE TOLERANCE (ORAL) (8) Anxiety Code(s): F41.9 - ANXIETY DISORDER, UNSPECIFIED
[2018-07-26] MEDS ORDERED: DOCUSATE SODIUM 100 MG CAPSULE (FP) PO PRN (14:24)
[2018-07-26] MEDS: POLYETHYLENE GLYCOL 3350 119 GM BTL PO SCH (16:00)
[2018-07-26] MEDS: ISOSORBIDE MONONITRATE 30 MG TAB.SR.24H (FP) PO SCH (21:47)
[2018-07-26] MEDS: QUEtiapine FUMARATE 25 MG TABLET (FP) PO SCH (21:47)
[2018-07-26] MEDS: MIRTAZAPINE 15 MG TABLET (FP) PO SCH (21:47)
[2018-07-26] MEDS: ATORVASTATIN CA 40 MG TABLET (FP) PO SCH (21:47)
[2018-07-27 06:59] LABS: ANION GAP 6 MMOL/L (8-16); BLOOD UREA NITROGEN 25 mg/dL (7-18); CALCIUM 8.5 mg/dL (8.5-10.1); CHLORIDE 105 mmol/L (98-107); CO2 29 mmol/L (21-32); CREATININE 0.8 mg/dL (0.55-1.3); GLUCOSE,RANDOM 97 mg/dL (74-106); POTASSIUM 4.4 mmol/L (3.5-5.1); SODIUM 141 mmol/L (136-145)
--- NOTE | 2018-07-27 09:20 | PN ---
Progress Note, Physician Chief Complaint: Events noted Not in distress History of Present Illness: Patient was seen and examined. Awake and alert. Chart was reviewed Denies chest pain, SOB or palpitations with ambulation - Current Medication List Current Medications: Active Medications Acetaminophen (Tylenol -) 650 mg PO Q6H PRN PRN Reason: PAIN LEVEL 1 - 3 Alprazolam (Xanax -) 0.25 mg PO DAILY PRN PRN Reason: ANXIETY Anastrozole (Arimidex -) 1 mg PO DAILY [facility] Last Admin: 07/26/18 10:59 Dose: 1 mg Aspirin (Ecotrin -) 325 mg PO DAILY [facility] Last Admin: 07/26/18 10:59 Dose: 325 mg Atorvastatin Calcium (Lipitor -) 40 mg PO HS [facility] Last Admin: 07/26/18 21:47 Dose: 40 mg Clonazepam (Klonopin -) 0.5 mg PO BID [facility] Last Admin: 07/26/18 21:47 Dose: 0.5 mg Clopidogrel Bisulfate (Plavix -) 75 mg PO DAILY [facility] Last Admin: 07/26/18 10:59 Dose: 75 mg Docusate Sodium (Colace -) 100 mg PO Q12H PRN PRN Reason: CONSTIPATION Isosorbide Mononitrate (Imdur -) 30 mg PO HS [facility] Last Admin: 07/26/18 21:47 Dose: 30 mg Metoprolol Succinate (Toprol Xl -) 50 mg PO DAILY [facility] Last Admin: 07/26/18 10:59 Dose: 50 mg Mirtazapine (Remeron -) 7.5 mg PO HS [facility] Last Admin: 07/26/18 21:47 Dose: 7.5 mg Nitroglycerin (Nitrostat -) 0.3 mg SL Q5M PRN PRN Reason: FOR CHEST PAIN Polyethylene Glycol (Miralax (For Daily Use) -) 17 gm PO DAILY [facility] Last Admin: 07/26/18 16:00 Dose: 17 gm Quetiapine Fumarate (Seroquel -) 25 mg PO HS [facility] Last Admin: 07/26/18 21:47 Dose: 25 mg Ranolazine (Ranexa -) 500 mg PO BID [facility] Last Admin: 07/26/18 21:47 Dose: 500 mg Venlafaxine HCl (Effexor Xr -) 150 mg PO DAILY [facility] Last Admin: 07/26/18 10:58 Dose: 150 mg - Objective Vital Signs: Vital Signs Temperature 97.9 F 07/27/18 06:00 Pulse Rate 68 07/27/18 06:00 Respiratory Rate 18 07/27/18 08:18 Blood Pressure 114/54 L 07/27/18 06:00 O2 Sat by Pulse Oximetry (%) 92 L 07/27/18 08:18 Eyes: Yes: PERRL HENT: Yes: Atraumatic Neck: Yes: Supple Cardiovascular: Yes: Regular Rate and Rhythm, S1, S2 Respiratory: Yes: CTA Bilaterally Gastrointestinal: Yes: Normal Bowel Sounds, Soft. No: Tenderness Edema: No Additional Findings/Remarks: - Review of Systems Constitutional: denies: Chills, Fever Cardiovascular: denies: Chest Pain. denies: Palpitations, Shortness of Breath Respiratory: denies: Cough. denies: Hemoptysis, Orthopnea, PND, SOB, SOB on Exertion Gastrointestinal: denies: Abdominal Pain, Constipation, Diarrhea, Melena, Nausea , Rectal Bleeding, Vomiting Neurological: denies: Dizziness, Headache, Seizure, Syncope Labs: 07/27/18 05:25 Problem List - Problems (1) Angina pectoris Code(s): I20.9 - ANGINA PECTORIS, UNSPECIFIED (2) Coronary artery disease Code(s): I25.10 - ATHSCL HEART DISEASE OF [place] CORONARY ARTERY W/O ANG PCTRS Qualifiers: Coronary Disease-Associated Artery/Lesion type: [place] artery [place] vs. transplanted heart: [place] heart Associated angina: with stable angina Qualified Code(s): I25.118 - Atherosclerotic heart disease of [place] coronary artery with other forms of angina pectoris (3) Diastolic dysfunction Code(s): I51.9 - HEART DISEASE, UNSPECIFIED (4) Glucose intolerance (impaired glucose tolerance) Code(s): R73.02 - IMPAIRED GLUCOSE TOLERANCE (ORAL) (5) Hypertensive heart disease Code(s): I11.9 - HYPERTENSIVE HEART DISEASE WITHOUT HEART FAILURE Qualifiers: Heart failure presence: without heart failure Qualified Code(s): I11.9 - Hypertensive heart disease without heart failure (6) S/P CABG (coronary artery bypass graft) Code(s): Z95.1 - PRESENCE OF AORTOCORONARY BYPASS GRAFT Assessment/Plan 1. Persistent RICE and chest discomfort referable to CAD s/p CABG with occluded SVG to D1, SVG to RPDA, angina pectoris 2. Diastolic dysfunction 3. Hypertensive heart disease 4. Hypercholesterolemia 5. Glucose interolance 6. Demand ischemia PLAN: 1. Continue ASA, Lipitor, Plavix, Imdur, Losartan, Toprol and Ranexa as tolerated 2. Optimize medical therapy as vein grafts are occluded. If patient continues to be symptomatic, may consider RCA [employer] intervention, but as she appears stable continue medical therapy. Discharge planning and follow up with Dr. Rivera in the office. She already has an appointment this week Further plans are to follow Ramone Melgar MD
[2018-07-27] MEDS: RANOLAZINE E.R. 500 MG TABLET (FP) PO SCH ×2 (09:57→21:18)
[2018-07-27] MEDS: ASPIRIN 325 MG ENTERIC COATED TABLET (FP) PO SCH (09:57)
[2018-07-27] MEDS: CLOPIDOGREL BISULFATE 75 MG TABLET (FP) PO SCH (09:57)
[2018-07-27] MEDS: clonazePAM 0.5 MG TABLET PO SCH ×2 (09:57→21:18)
[2018-07-27] MEDS: ANASTROZOLE 1 MG TABLET PO SCH (09:58)
[2018-07-27] MEDS: VENLAFAXINE HCL 75 MG E.R. CAPSULES (FP) PO SCH (09:58)
[2018-07-27] MEDS: POLYETHYLENE GLYCOL 3350 119 GM BTL PO SCH (11:19)
--- NOTE | 2018-07-27 12:04 | DS ---
Physical Examination Vital Signs: Vital Signs Temperature 98.2 F 07/27/18 11:02 Pulse Rate 76 07/27/18 11:02 Respiratory Rate 18 07/27/18 11:02 Blood Pressure 105/51 L 07/27/18 11:02 O2 Sat by Pulse Oximetry (%) 92 L 07/27/18 08:18 Constitutional: Yes: Well Nourished, Anxious Eyes: Yes: Conjunctiva Clear Cardiovascular: Yes: Regular Rate and Rhythm Respiratory: Yes: Regular Gastrointestinal: Yes: Soft Musculoskeletal: Yes: WNL Extremities: Yes: WNL Edema: No Integumentary: Yes: WNL Neurological: Yes: Alert, Oriented ...Motor Strength: WNL Labs: CBC, BMP 07/24/18 05:50 07/27/18 05:25 Discharge Summary Reason For Visit: CHEST PAIN Current Active Problems Angina pectoris (Acute) Anxiety (Acute) Chest pain (Acute) Coronary artery disease (Acute) Diastolic dysfunction (Acute) Glucose intolerance (impaired glucose tolerance) (Acute) Hypertensive heart disease (Acute) S/P CABG (coronary artery bypass graft) (Acute) lipidemia breast cancer Hospital Course: 82YOF with h/o HTN, CAD, angina now s/p CABG 2 years ago at [place] for onset of resting left-sided chest pressure radiating down LUE which brought bher to ER; she was seen by Cardiology and some meds were adjusted and new ones added. She was free of resting angina the day after. All her troponions were negative. She ambulated pain free thereafter, and it was felt that she could go home by the transmitter supervisor. While hospitalized the BP was a buit low and the ARB was stopped as well as the Aldactone; 2 new agents were started. Plan is to f/u with transmitter supervisor and for [facility]NS. The plan is to do amb oximtery prior to d/c Condition: Improved - Instructions Diet, Activity, Other Instructions: low salt diet no strenuous activity stay calm DO NOT take Calcium; Multivitamins, Vitamin C, Vitamin D for the next 10 days STOP Taking: Losartan and Spironolactone continue to Take Isosorbide at night time (bedtime) continue to Take Furosemide (diuretic--water pill), but only 3 days a week in the daytime; on ; wednesdays and Fridays New pills: Ranexa 500mg twice a day morning and night Clopidogrel 75mg once a day in daytime Referrals: Miguel Baker MD [Primary Care Provider] - Disposition: VNS/HOME HEALTH CARE - Home Medications Comprehensive Discharge Medication List: Ambulatory Orders Clonazepam [Klonopin] 1 mg PO BID 07/29/15 Venlafaxine HCl ER [Effexor Xr -] 150 mg PO DAILY 07/29/15 Quetiapine Fumarate [Seroquel -] 25 mg PO HS 03/18/16 Aspirin [Aspirin EC] 81 mg PO DAILY 06/14/17 Atorvastatin Ca [Lipitor] 40 mg PO DAILY 06/14/17 Mirtazapine 15 mg PO DAILY 06/14/17 Anastrozole [Arimidex -] 1 mg PO DAILY tablet 07/27/18 Clopidogrel Bisulfate [Plavix -] 75 mg PO DAILY 90 Days #90 tablet 07/27/18 Isosorbide Mononitrate [Imdur -] 60 mg PO DAILY@1700 tab.sr.24h 07/27/18 Metoprolol Succinate [Toprol XL -] 50 mg PO DAILY tab.sr.24h 07/27/18 Ranolazine [Ranexa -] 500 mg PO BID #180 tab 07/27/18
[2018-07-27] MEDS ORDERED: PT OWN MED DRAWER 7, Y5N ONE (13:28)
[2018-07-27] MEDS: ISOSORBIDE MONONITRATE 30 MG TAB.SR.24H (FP) PO SCH (21:17)
[2018-07-27] MEDS: MIRTAZAPINE 15 MG TABLET (FP) PO SCH (21:17)
[2018-07-27] MEDS: QUEtiapine FUMARATE 25 MG TABLET (FP) PO SCH (21:18)
[2018-07-27] MEDS: ATORVASTATIN CA 40 MG TABLET (FP) PO SCH (21:18)
[2018-07-28 08:43] VITALS: BP 109/59; PULSE 70; TEMP 98.4
[2018-07-28] MEDS: VENLAFAXINE HCL 75 MG E.R. CAPSULES (FP) PO SCH (09:31)
[2018-07-28] MEDS: CLOPIDOGREL BISULFATE 75 MG TABLET (FP) PO SCH (09:31)
[2018-07-28] MEDS: clonazePAM 0.5 MG TABLET PO SCH (09:31)
[2018-07-28] MEDS: ASPIRIN 325 MG ENTERIC COATED TABLET (FP) PO SCH (09:31)
[2018-07-28] MEDS: ANASTROZOLE 1 MG TABLET PO SCH (09:31)
[2018-07-28] MEDS: RANOLAZINE E.R. 500 MG TABLET (FP) PO SCH (09:32)
[2018-07-28] MEDS: POLYETHYLENE GLYCOL 3350 119 GM BTL PO SCH (09:32)
--- NOTE | 2018-07-28 10:29 | PN ---
Progress Note, Physician Chief Complaint: Events noted Not in distress History of Present Illness: Patient was seen and examined. Awake and alert. Chart was reviewed Denies chest pain, SOB or palpitations with ambulation - Current Medication List Current Medications: Active Medications Acetaminophen (Tylenol -) 650 mg PO Q6H PRN PRN Reason: PAIN LEVEL 1 - 3 Alprazolam (Xanax -) 0.25 mg PO DAILY PRN PRN Reason: ANXIETY Anastrozole (Arimidex -) 1 mg PO DAILY [facility] Last Admin: 07/28/18 09:31 Dose: 1 mg Aspirin (Ecotrin -) 325 mg PO DAILY [facility] Last Admin: 07/28/18 09:31 Dose: 325 mg Atorvastatin Calcium (Lipitor -) 40 mg PO HS [facility] Last Admin: 07/27/18 21:18 Dose: 40 mg Clonazepam (Klonopin -) 0.5 mg PO BID [facility] Last Admin: 07/28/18 09:31 Dose: 0.5 mg Clopidogrel Bisulfate (Plavix -) 75 mg PO DAILY [facility] Last Admin: 07/28/18 09:31 Dose: 75 mg Docusate Sodium (Colace -) 100 mg PO Q12H PRN PRN Reason: CONSTIPATION Isosorbide Mononitrate (Imdur -) 30 mg PO HS [facility] Last Admin: 07/27/18 21:17 Dose: 30 mg Metoprolol Succinate (Toprol Xl -) 50 mg PO DAILY [facility] Last Admin: 07/28/18 09:31 Dose: 50 mg Mirtazapine (Remeron -) 7.5 mg PO [facility] Last Admin: 07/27/18 21:17 Dose: 7.5 mg Nitroglycerin (Nitrostat -) 0.3 mg SL Q5M PRN PRN Reason: FOR CHEST PAIN Polyethylene Glycol (Miralax (For Daily Use) -) 17 gm PO DAILY [facility] Last Admin: 07/28/18 09:32 Dose: Not Given Quetiapine Fumarate (Seroquel -) 25 mg PO HS [facility] Last Admin: 07/27/18 21:18 Dose: 25 mg Ranolazine (Ranexa -) 500 mg PO BID [facility] Last Admin: 07/28/18 09:32 Dose: 500 mg Venlafaxine HCl (Effexor Xr -) 150 mg PO DAILY [facility] Last Admin: 07/28/18 09:31 Dose: 150 mg - Objective Vital Signs: Vital Signs Temperature 98.4 F 07/28/18 08:42 Pulse Rate 70 07/28/18 08:42 Respiratory Rate 18 07/28/18 08:42 Blood Pressure 109/59 L 07/28/18 08:42 O2 Sat by Pulse Oximetry (%) 93 L 07/28/18 08:04 Constitutional: Yes: Well Nourished Eyes: Yes: PERRL HENT: Yes: Atraumatic Neck: Yes: Supple Cardiovascular: Yes: Regular Rate and Rhythm, S1, S2 Respiratory: Yes: CTA Bilaterally Gastrointestinal: Yes: Normal Bowel Sounds, Soft. No: Tenderness Edema: No Additional Findings/Remarks: - Review of Systems Constitutional: denies: Chills, Fever Cardiovascular: denies: Chest Pain. denies: Palpitations, Shortness of Breath Respiratory: denies: Cough. denies: Hemoptysis, Orthopnea, PND, SOB, SOB on Exertion Gastrointestinal: denies: Abdominal Pain, Constipation, Diarrhea, Melena, Nausea , Rectal Bleeding, Vomiting Neurological: denies: Dizziness, Headache, Seizure, Syncope Problem List - Problems (1) Angina pectoris Code(s): I20.9 - ANGINA PECTORIS, UNSPECIFIED (2) Coronary artery disease Code(s): I25.10 - ATHSCL HEART DISEASE OF [place] CORONARY ARTERY W/O ANG PCTRS Qualifiers: Coronary Disease-Associated Artery/Lesion type: [place] artery [place] vs. transplanted heart: [place] heart Associated angina: with stable angina Qualified Code(s): I25.118 - Atherosclerotic heart disease of [place] coronary artery with other forms of angina pectoris (3) Diastolic dysfunction Code(s): I51.9 - HEART DISEASE, UNSPECIFIED (4) Glucose intolerance (impaired glucose tolerance) Code(s): R73.02 - IMPAIRED GLUCOSE TOLERANCE (ORAL) (5) Hypertensive heart disease Code(s): I11.9 - HYPERTENSIVE HEART DISEASE WITHOUT HEART FAILURE Qualifiers: Heart failure presence: without heart failure Qualified Code(s): I11.9 - Hypertensive heart disease without heart failure (6) S/P CABG (coronary artery bypass graft) Code(s): Z95.1 - PRESENCE OF AORTOCORONARY BYPASS GRAFT Assessment/Plan 1. Persistent RICE and chest discomfort referable to CAD s/p CABG with occluded SVG to D1, SVG to RPDA, angina pectoris 2. Diastolic dysfunction 3. Hypertensive heart disease 4. Hypercholesterolemia 5. Glucose interolance 6. Demand ischemia PLAN: 1. Continue ASA, Lipitor, Plavix, Imdur, Losartan, Toprol and Ranexa as tolerated 2. Optimize medical therapy as vein grafts are occluded. If patient continues to be symptomatic, may consider RCA [employer] intervention, but as she appears stable continue medical therapy. Discharge planning and follow up with Dr. Rivera in the office. Discharge home Ramone Melgar MD
--- NOTE | 2018-07-28 13:32 | PN ---
Progress Note (short form) - Note Progress Note: ............................................ ADDENDUM to Disch Summ Current Medications Acetaminophen (Tylenol -) 650 mg PO Q6H PRN PRN Reason: PAIN LEVEL 1 - 3 Alprazolam (Xanax -) 0.25 mg PO DAILY PRN PRN Reason: ANXIETY Anastrozole (Arimidex -) 1 mg PO DAILY [facility] Last Admin: 07/28/18 09:31 Dose: 1 mg Aspirin (Ecotrin -) 325 mg PO DAILY [facility] Last Admin: 07/28/18 09:31 Dose: 325 mg Atorvastatin Calcium (Lipitor -) 40 mg PO HS [facility] Last Admin: 07/27/18 21:18 Dose: 40 mg Clonazepam (Klonopin -) 0.5 mg PO BID [facility] Last Admin: 07/28/18 09:31 Dose: 0.5 mg Clopidogrel Bisulfate (Plavix -) 75 mg PO DAILY [facility] Last Admin: 07/28/18 09:31 Dose: 75 mg Docusate Sodium (Colace -) 100 mg PO Q12H PRN PRN Reason: CONSTIPATION Isosorbide Mononitrate (Imdur -) 30 mg PO [facility] Last Admin: 07/27/18 21:17 Dose: 30 mg Metoprolol Succinate (Toprol Xl -) 50 mg PO DAILY [facility] Last Admin: 07/28/18 09:31 Dose: 50 mg Mirtazapine (Remeron -) 7.5 mg PO HS [facility] Last Admin: 07/27/18 21:17 Dose: 7.5 mg Nitroglycerin (Nitrostat -) 0.3 mg SL Q5M PRN PRN Reason: FOR CHEST PAIN Polyethylene Glycol (Miralax (For Daily Use) -) 17 gm PO DAILY [facility] Last Admin: 07/28/18 09:32 Dose: Not Given Quetiapine Fumarate (Seroquel -) 25 mg PO HS [facility] Last Admin: 07/27/18 21:18 Dose: 25 mg Ranolazine (Ranexa -) 500 mg PO BID [facility] Last Admin: 07/28/18 09:32 Dose: 500 mg Venlafaxine HCl (Effexor Xr -) 150 mg PO DAILY [facility] Last Admin: 07/28/18 09:31 Dose: 150 mg Laboratory Results - last 24 hr 07/28/18 07:15 POC Glucometer 103 Vital Signs Temperature 98.4 F 07/28/18 08:42 Pulse Rate 70 07/28/18 08:42 Respiratory Rate 18 07/28/18 08:42 Blood Pressure 109/59 L 07/28/18 08:42 O2 Sat by Pulse Oximetry (%) 93 L 07/28/18 08:04 CC: no resting angina ``````````````````` skin--NL color; no rashes eyes--EOMI lungs--clear heart--RR ext--trace edema bilat neuro--awake, coherent, no deficits; mood guarded; able to walk on her own `````````````````````````` Summ > angina--no resting episodes into today; no CP on ambulation; PLAN: cont current agents > Hypotension--SBP above 100; BP better today. > ASHD--no CHF; BP on low end w/o Sx; will stop the ARB. > constip--rx colace & Miralax > DM--vs Pre-DM; a1c is 6.8 ; BGMs in low 100's w/o sugar restriction. > anxiety Dz --easily perturbed inspite of taking multiple psych meds; may need Psych eval as OP > elevated TSH--mild ``````````````````` Dr Baker Problem List - Problems (1) Angina pectoris Code(s): I20.9 - ANGINA PECTORIS, UNSPECIFIED (2) Hypertensive heart disease Code(s): I11.9 - HYPERTENSIVE HEART DISEASE WITHOUT HEART FAILURE Qualifiers: Heart failure presence: without heart failure Qualified Code(s): I11.9 - Hypertensive heart disease without heart failure (3) S/P CABG (coronary artery bypass graft) Code(s): Z95.1 - PRESENCE OF AORTOCORONARY BYPASS GRAFT (4) Breast cancer Code(s): C50.919 - MALIGNANT NEOPLASM OF UNSP SITE OF UNSPECIFIED FEMALE BREAST Qualifiers: Breast location: unspecified site of breast Estrogen receptor status: positive Patient sex: female Laterality: unspecified laterality Qualified Code(s): C50.919 - Malignant neoplasm of unspecified site of unspecified female breast; Z17.0 - Estrogen receptor positive status [ER+] (5) Hyperlipidemia Code(s): E78.5 - HYPERLIPIDEMIA, UNSPECIFIED Qualifiers: Hyperlipidemia type: pure hypercholesterolemia Qualified Code(s): E78.00 - Pure hypercholesterolemia, unspecified; E78.0 - Pure hypercholesterolemia (6) UTI (urinary tract infection) Code(s): N39.0 - URINARY TRACT INFECTION, SITE NOT SPECIFIED Qualifiers: Indwelling urinary catheter type: unspecified (7) Glucose intolerance (impaired glucose tolerance) Code(s): R73.02 - IMPAIRED GLUCOSE TOLERANCE (ORAL) (8) Anxiety Code(s): F41.9 - ANXIETY DISORDER, UNSPECIFIED
== END 2018-07-28 14:36 | disposition home health service (06) | DRG 303 ==
LOC: JER 05:07 → JERBED 08:15 → J4S 12:45
PROVIDERS: ADMIT Internal Medicine; ATTEND Internal Medicine
DX: I25.118 Atherosclerotic heart disease of native coronary artery with other forms of angina pectoris (principal); I24.8 Other forms of acute ischemic heart disease; N39.0 Urinary tract infection, site not specified; E78.5 Hyperlipidemia, unspecified; R06.02 Shortness of breath; M54.5 Low back pain; K21.9 Gastro-esophageal reflux disease without esophagitis; M06.9 Rheumatoid arthritis, unspecified; E74.39 Other disorders of intestinal carbohydrate absorption; F41.9 Anxiety disorder, unspecified; K59.00 Constipation, unspecified; E11.9 Type 2 diabetes mellitus without complications; I11.9 Hypertensive heart disease without heart failure; Z85.3 Personal history of malignant neoplasm of breast; Z95.1 Presence of aortocoronary bypass graft
CPT/HCPCS: 36415; 71045-TC-FY; 80048; 80053; 80061; 81003; 82550; 82803; 82962; 83036; 83690; 83721; 83735; 83880; 84436; 84439; 84443; 84484; 85025; 85610; 85730; 86141; 93005; 93010; 94761; 99282-25; J7030

== ENCOUNTER 2019-03-14 12:32 | Emergency (ER) | payer OTHER ==
[2019-03-14 12:38] VITALS: BP 130/63; PULSE 72; TEMP 97; BMI 27.3
--- NOTE | 2019-03-14 13:49 | PDOC ---
History of Present Illness - General Chief Complaint: Injury Stated Complaint: LT ARM INJURY Time Seen by Provider: 03/14/19 12:58 - History of Present Illness Initial Comments: 03/14/19 13:39 CHIEF COMPLAINT: wrist pain HISTORY OF PRESENT ILLNESS: 83 yo F with hx of HTN, CAD, angina, s/p CABG presents to fast track with pain to left wrist s/p fall. Patient reports that she was walking and tripped and fell and landed on her left arm. Denies any chest pain, SOB, headache, weakness, change in vision. No recent travel or sick contacts. PAST MEDICAL HISTORY: Denies past medical history FAMILY HISTORY: Denies SOCIAL HISTORY: Denies tobacco, alcohol, illicit drug use. SURGICAL HISTORY: Denies ALLERGIES: PCN, sulfa REVIEW OF SYSTEMS General/Constitutional: Denies fever or chills. Denies weakness, weight change. HEENT: Denies change in vision. Denies ear pain or discharge. Denies sore throat. Cardiovascular: Denies chest pain or shortness of breath. Respiratory: Denies cough, wheezing, or hemoptysis. Gastrointestinal: Denies nausea, vomiting, diarrhea or constipation. Denies rectal bleeding. Genitourinary: Denies dysuria, frequency, or change in urination. Musculoskeletal: Pain and swelling to left wrist. Skin and breasts: Denies rash or easy bruising. Neurologic: Denies headache, vertigo, loss of consciousness, or loss of sensation. PHYSICAL EXAM General Appearance: Well-appearing, appropriately dressed. No apparent distress , no intoxication. HEENT: EOMI, PERRLA, normal ENT inspection, normal voice, TMs normal, pharynx normal. No conjunctival pallor. No photophobia, scleral icterus. Neck: Supple. Trachea midline. No tenderness, rigidity, carotid bruit, stridor , lymphadenopathy, or thyromegaly. Respiratory/Chest: Lungs CTAB. No shortness of breath, chest tenderness, respiratory distress, accessory muscle use. No crackles, rales, rhonchi, stridor , wheezing, dullness Cardiovascular: RRR. S1, S2. No JVD, murmur, bradycardia, tachycardia. Vascular Pulses: Dorsalis-Pedis (R): 2+, Dorsalis-Pedis (L): 2+ Gastrointestinal/Abdominal: Normal bowel sounds. Abdomen soft, non-distended. No tenderness or rebound tenderness. No organomegaly, pulsatile mass, guarding , hernia, hepatomegaly, splenomegaly. Lymphatic: No adenopathy, tenderness. Musculoskeletal/Extremities: Tenderness to radial aspect of left wrist with swelling. No ecchymosis or bleeding. Normal inspection. FROM of all extremities , normal capillary refill. Pelvis Stable. No CVA tenderness. No tenderness to extremities, pedal edema, swelling, erythema or deformity. Integumentary: Appropriate color, dry, warm. No cyanosis, erythema, jaundice or rash Neurologic: acid painter II-XII intact. Fully oriented, alert. Appropriate mood/affect. Motor strength 5/5. No appreciable EOM palsy, facial droop or sensory deficit. 03/14/19 13:50 Past History - Past Medical History Allergies/Adverse Reactions: Allergies Allergy/AdvReac Type Severity Reaction Status Date / Time penicillin G Allergy Intermediate Rash Verified 03/14/19 12:38 Sulfa (Sulfonamide Allergy Intermediate Rash Verified 03/14/19 12:38 Antibiotics) [Sulfa(Sulfonamide Antibiotics)] Home Medications: Ambulatory Orders Clonazepam [Klonopin] 1 mg PO BID 07/29/15 Venlafaxine HCl ER [Effexor Xr -] 150 mg PO DAILY 07/29/15 Quetiapine Fumarate [Seroquel -] 25 mg PO HS 03/18/16 Aspirin [Aspirin EC] 81 mg PO DAILY 06/14/17 Atorvastatin Ca [Lipitor] 40 mg PO DAILY 06/14/17 Mirtazapine 15 mg PO DAILY 06/14/17 Anastrozole [Arimidex -] 1 mg PO DAILY tablet 07/27/18 Clopidogrel Bisulfate [Plavix -] 75 mg PO DAILY 90 Days #90 tablet 07/27/18 Isosorbide Mononitrate [Imdur -] 60 mg PO DAILY@1700 tab.sr.24h 07/27/18 Metoprolol Succinate [Toprol XL -] 50 mg PO DAILY tab.sr.24h 07/27/18 Ranolazine [Ranexa -] 500 mg PO BID #180 tab 07/27/18 Anemia: No Asthma: No Cancer: Yes (LT BREAST) Cardiac Disorders: Yes (h/o palpitations, ARRHYTHMIAS) CVA: No COPD: No CHF: No Dementia: No Diabetes: No GI Disorders: Yes (PEPTIC ULCER, DIVERTICULOSIS, COLON POLYPS) Disorders: No HTN: Yes Hypercholesterolemia: Yes Liver Disease: No Seizures: No Thyroid Disease: No - Surgical History Cardiac Surgery: Yes ([facility] 2016) - Immunization History Immunization Up to Date: Yes - Suicide/Smoking/Psychosocial Hx Smoking History: Never smoked Have you smoked in the past 12 months: No Hx Alcohol Use: No Drug/Substance Use Hx: No Substance Use Type: None Hx Substance Use Treatment: No *Physical Exam - Vital Signs Last Vital Signs Temp Pulse Resp BP Pulse Ox 97 F L 72 18 130/63 99 03/14/19 12:37 03/14/19 12:37 03/14/19 12:37 03/14/19 12:37 03/14/19 12:37 ED Treatment Course - RADIOLOGY Radiology Studies Ordered: Category Date Time Status WRIST W/HAND-LEFT* [RAD] Stat Radiology 03/14/19 12:57 Taken Medical Decision Making - Medical Decision Making 03/14/19 13:52 83 yo F with hx of HTN, CAD, angina, s/p CABG presents to fast track with pain to left wrist s/p fall. -hand/wrist x-ray wrist x-ray positive for impacted fracture of distal radius and ulna. -volar/dorsal splint applied Follow up with ortho. *DC/Admit/Observation/Transfer Diagnosis at time of Disposition: Radial fracture Qualifiers: Encounter type: initial encounter Radius location: head Fracture type: closed Fracture alignment: nondisplaced Laterality: left Qualified Code(s): S52.125A - Nondisplaced fracture of head of left radius, initial encounter for closed fracture Ulna distal fracture Qualifiers: Encounter type: initial encounter Fracture type: closed Fracture morphology: unspecified fracture morphology Laterality: left Qualified Code(s): S52.602A - Unspecified fracture of lower end of left ulna, initial encounter for closed fracture - Discharge Dispostion Disposition: HOME Decision to Admit order: No - Referrals Referrals: Hema Calixto DO [Staff Physician] - - Patient Instructions Printed Discharge Instructions: How to Use a Sling, DI for Wrist Fracture Additional Instructions: As discussed, you must follow up with orthopedics for further treatment and management of your broken wrist. If you develop change in color or numbness to your fingers, swelling to your hand or wrist, worsening pain, or any new or worsening symptoms, please return to the ER immediately. - Post Discharge Activity
== END 2019-03-14 14:17 | disposition home or self-care (01) ==
LOC: JERFT 12:32
DX: S52.592A Other fractures of lower end of left radius, initial encounter for closed fracture (principal); S52.692A Other fracture of lower end of left ulna, initial encounter for closed fracture; W18.39XA Other fall on same level, initial encounter; Y93.89 Activity, other specified; Y92.89 Other specified places as the place of occurrence of the external cause; Y99.8 Other external cause status; I25.119 Atherosclerotic heart disease of native coronary artery with unspecified angina pectoris; I10 Essential (primary) hypertension; Z95.1 Presence of aortocoronary bypass graft; E78.00 Pure hypercholesterolemia, unspecified; Z87.19 Personal history of other diseases of the digestive system; Z85.3 Personal history of malignant neoplasm of breast
CPT/HCPCS: 73110-TC-LT-FY; 73130-TC-LT-FY; 99282-25

== ENCOUNTER 2021-03-07 07:21 | Day surgery (SDC) | payer OTHER ==
[2021-03-07] MEDS ORDERED: ZOLEDRONIC ACID/MAN/WATER 5 MG/100 ML INFUS..BTL IVPB ONE (11:00)
[2021-03-07 15:20] VITALS: BP 137/46; PULSE 71; TEMP 98.1
== END 2021-03-07 12:15 | disposition home or self-care (01) ==
LOC: JONCCHEMO 07:21
PROVIDERS: ATTEND Internal Medicine Hematology & Oncology
PROC: 3E033GC Introduction of Other Therapeutic Substance into Peripheral Vein, Percutaneous Approach (ICD-10-PCS; principal; 2021-03-07)
DX: Z76.89 Persons encountering health services in other specified circumstances (principal); C50.419 Malignant neoplasm of upper-outer quadrant of unspecified female breast; Z17.0 Estrogen receptor positive status [ER+]; I10 Essential (primary) hypertension; Z88.0 Allergy status to penicillin; Z88.2 Allergy status to sulfonamides; M85.80 Other specified disorders of bone density and structure, unspecified site
CPT/HCPCS: 96365; J3489

== ENCOUNTER 2022-07-06 13:38 | Inpatient (IN) | payer OTHER ==
[2022-07-06] MEDS ORDERED: DEXAMETHASONE SOD PHOSPHATE 20 MG/5 ML VIAL IVPB ONE (14:42)
[2022-07-06] MEDS ORDERED: DEXAMETHASONE SOD PHOSPHATE 10 MG/1 ML VIAL ONE (15:18)
[2022-07-06 16:39] LABS: VENOUS BASE EXCESS -0.1 mmol/L (-2-2); VENOUS O2 SATURATION 90.5 % (70-80); VENOUS PCO2 38.1 mmHg (38-52); VENOUS PH 7.421 (7.310-7.410)
[2022-07-06 16:40] LABS: BASO % 0.5 % (0-2.0); EOS % 0.1 % (0-4.5); HEMOGLOBIN 10.5 GM/dL (10.7-15.3); LYMPH % 37.7 % (8-40); MCH 30.3 pg (25.7-33.7); MCHC 31.8 g/dl (32.0-36.0); MEAN CELL VOLUME 95.2 fl (80-96); MEAN PLT VOLUME 9.6 fl (7.5-11.1); MONO % 12.8 % (3.8-10.2); NEUT % 48.9 % (42.8-82.8); PLATELET COUNT 168 10^3/uL (134-434); RBC 3.47 M/mm3 (3.60-5.2); RDW 14.6 % (11.6-15.6); WHITE BLOOD COUNT 5.7 K/mm3 (4.0-10.0)
[2022-07-06 16:48] LABS: INR 1.15 (0.83-1.09); PROTHROMBIN TIME (PATIENT) 13.3 SEC (9.7-13.0)
[2022-07-06 16:51] LABS: ACTIVATED PTT 33.5 SECONDS (25.2-36.5)
[2022-07-06 16:58] LABS: ALBUMIN 3.2 g/dl (3.4-5.0); BLOOD UREA NITROGEN 16.9 mg/dL (7-18); CALCIUM 8.3 mg/dL (8.5-10.1)
[2022-07-06 17:02] LABS: BILIRUBIN,DIRECT 0.2 mg/dL (0.0-0.2); CREATININE 0.7 mg/dL (0.55-1.3)
[2022-07-06 17:03] LABS: BILIRUBIN,TOTAL 0.5 mg/dL (0.2-1); TOT PROT 6.2 g/dl (6.4-8.2)
[2022-07-06] MEDS ORDERED: ASPIRIN 81 MG CHEWABLE TABLETS PO ONE (17:20)
[2022-07-06] MEDS ORDERED: ASPIRIN 81 MG CHEWABLE TABLETS ONE (17:42)
[2022-07-07 07:22] LABS: BASO % 0.1 % (0-2.0); HEMATOCRIT 35.8 % (32.4-45.2); HEMOGLOBIN 11.7 GM/dL (10.7-15.3); LYMPH % 18.2 % (8-40); MCH 30.8 pg (25.7-33.7); MCHC 32.7 g/dl (32.0-36.0); MEAN CELL VOLUME 94.1 fl (80-96); MEAN PLT VOLUME 9.5 fl (7.5-11.1); MONO % 5.7 % (3.8-10.2); PLATELET COUNT 201 10^3/uL (134-434); RBC 3.81 M/mm3 (3.60-5.2); RDW 14.8 % (11.6-15.6); WHITE BLOOD COUNT 5.7 K/mm3 (4.0-10.0)
[2022-07-07 07:46] LABS: ALBUMIN 3.2 g/dl (3.4-5.0); BLOOD UREA NITROGEN 16.5 mg/dL (7-18); CALCIUM 8.7 mg/dL (8.5-10.1); MAGNESIUM 2.3 mg/dL (1.8-2.4)
[2022-07-07 07:49] LABS: CREATININE 0.6 mg/dL (0.55-1.3)
[2022-07-07 07:50] LABS: TOT PROT 6.7 g/dl (6.4-8.2)
[2022-07-07 07:51] LABS: BILIRUBIN,TOTAL 0.5 mg/dL (0.2-1)
[2022-07-07] MEDS ORDERED: clonazePAM 0.5 MG TABLET ONE ×2 (08:53→21:56)
[2022-07-07] MEDS ORDERED: VENLAFAXINE HCL 75 MG TABLET ONE (08:53)
[2022-07-07] MEDS ORDERED: RANOLAZINE E.R. 500 MG TABLET (FP) ONE ×2 (08:54→21:57)
[2022-07-07] MEDS ORDERED: CLOPIDOGREL BISULFATE 75 MG TABLET (FP) ONE (08:54)
[2022-07-07] MEDS ORDERED: ASPIRIN COATED 81 MG TABLET.EC ONE (08:54)
[2022-07-07] MEDS: CLOPIDOGREL BISULFATE 75 MG TABLET (FP) PO SCH (09:35)
[2022-07-07] MEDS: clonazePAM 0.5 MG TABLET PO SCH ×2 (09:35→22:10)
[2022-07-07] MEDS: ASPIRIN COATED 81 MG TABLET.EC PO SCH (09:35)
[2022-07-07] MEDS: ANASTROZOLE 1 MG TABLET PO SCH (09:35)
[2022-07-07] MEDS: VENLAFAXINE HCL 150 MG E.R. CAPSULE PO SCH (09:35)
[2022-07-07] MEDS: RANOLAZINE E.R. 500 MG TABLET (FP) PO SCH ×2 (09:52→22:10)
[2022-07-07] MEDS ORDERED: PHENAZOPYRIDINE HCL 100 MG TABLET (FP) PO PRN (09:58)
[2022-07-07] MEDS ORDERED: DEXAMETHASONE 4 MG TABLET (FP) PO SCH (10:00)
[2022-07-07] MEDS ORDERED: MIRTAZAPINE 15 MG TABLET (FP) PO SCH (10:00)
[2022-07-07] MEDS ORDERED: DEXAMETHASONE SOD PHOSPHATE 10 MG/1 ML VIAL IVPUSH SCH (10:00)
[2022-07-07] MEDS ORDERED: ALBUTEROL SO4 HFA INHALER IH PRN (10:02)
[2022-07-07] MEDS ORDERED: NITROFURANTOIN MACROCRYSTAL 50 MG CAPSULE (FP) PO ONE (10:15)
[2022-07-07] MEDS ORDERED: NITROFURANTOIN MACROCRYSTAL 50 MG CAPSULE (FP) ONE (10:47)
[2022-07-07] MEDS ORDERED: DEXAMETHASONE 4 MG TABLET (FP) ONE (10:47)
[2022-07-07] MEDS ORDERED: REMDESIVIR 200 MG in SODIUM CHLORIDE 250 ML IVPB ONE (11:00)
[2022-07-07] MEDS ORDERED: ISOSORBIDE MONONITRATE 60 MG TAB.SR.24H (FP) PO ONE (17:26)
[2022-07-07] MEDS: ISOSORBIDE MONONITRATE 60 MG TAB.SR.24H (FP) PO SCH (17:28)
[2022-07-07] MEDS ORDERED: ATORVASTATIN CA 40 MG TABLET (FP) ONE (21:56)
[2022-07-07] MEDS ORDERED: QUEtiapine FUMARATE 25 MG TABLET ONE (21:56)
[2022-07-07] MEDS ORDERED: MIRTAZAPINE 15 MG TABLET (FP) ONE (21:57)
[2022-07-07] MEDS: QUEtiapine FUMARATE 25 MG TABLET PO SCH (22:10)
[2022-07-07] MEDS: ATORVASTATIN CA 40 MG TABLET (FP) PO SCH (22:10)
[2022-07-07] MEDS: MIRTAZAPINE 15 MG TABLET (FP) PO SCH (22:10)
[2022-07-08] MEDS ORDERED: clonazePAM 0.5 MG TABLET ONE ×2 (09:53→21:58)
[2022-07-08] MEDS ORDERED: ASPIRIN COATED 81 MG TABLET.EC ONE (09:54)
[2022-07-08] MEDS ORDERED: DEXAMETHASONE SOD PHOSPHATE 10 MG/1 ML VIAL ONE (09:54)
[2022-07-08] MEDS ORDERED: CLOPIDOGREL BISULFATE 75 MG TABLET (FP) ONE (09:54)
[2022-07-08] MEDS: CLOPIDOGREL BISULFATE 75 MG TABLET (FP) PO SCH (10:27)
[2022-07-08] MEDS: clonazePAM 0.5 MG TABLET PO SCH ×2 (10:27→22:04)
[2022-07-08] MEDS: ASPIRIN COATED 81 MG TABLET.EC PO SCH (10:27)
[2022-07-08] MEDS: ANASTROZOLE 1 MG TABLET PO SCH (10:27)
[2022-07-08] MEDS: VENLAFAXINE HCL 150 MG E.R. CAPSULE PO SCH (10:27)
[2022-07-08] MEDS: DEXAMETHASONE SOD PHOSPHATE 10 MG/1 ML VIAL IVPUSH SCH (10:28)
[2022-07-08] MEDS ORDERED: ENOXAPARIN NA (PORCINE) 40 MG/0.4 ML DISP.SYRIN SQ ONE (10:30)
[2022-07-08] MEDS: ENOXAPARIN NA (PORCINE) 40 MG/0.4 ML DISP.SYRIN SQ SCH (10:52)
[2022-07-08 11:05] LABS: URINE APPEARANCE CLEAR; URINE BILIRUBIN NEGATIVE (NEGATIVE); URINE COLOR YELLOW; URINE GLUCOSE (UA) NEGATIVE (NEGATIVE); URINE KETONE NEGATIVE (NEGATIVE); URINE LEUK ESTERASE NEGATIVE (NEGATIVE); URINE NITRITE NEGATIVE (NEGATIVE); URINE PROTEIN TRACE (NEGATIVE)
[2022-07-08] MEDS: REMDESIVIR 100 MG in SODIUM CHLORIDE 250 ML IVPB SCH (12:02)
[2022-07-08] MEDS: RANOLAZINE E.R. 500 MG TABLET (FP) PO SCH ×2 (12:03→22:04)
[2022-07-08] MEDS ORDERED: ISOSORBIDE MONONITRATE 60 MG TAB.SR.24H (FP) PO ONE (17:17)
[2022-07-08] MEDS: ISOSORBIDE MONONITRATE 60 MG TAB.SR.24H (FP) PO SCH (17:22)
[2022-07-08] MEDS ORDERED: MIRTAZAPINE 15 MG TABLET (FP) ONE (21:59)
[2022-07-08] MEDS ORDERED: ATORVASTATIN CA 40 MG TABLET (FP) ONE (21:59)
[2022-07-08] MEDS ORDERED: QUEtiapine FUMARATE 25 MG TABLET ONE (21:59)
[2022-07-08] MEDS ORDERED: RANOLAZINE E.R. 500 MG TABLET (FP) ONE (21:59)
[2022-07-08] MEDS: QUEtiapine FUMARATE 25 MG TABLET PO SCH (22:04)
[2022-07-08] MEDS: ATORVASTATIN CA 40 MG TABLET (FP) PO SCH (22:04)
[2022-07-08] MEDS: MIRTAZAPINE 15 MG TABLET (FP) PO SCH (22:04)
[2022-07-09] MEDS ORDERED: DEXAMETHASONE SOD PHOSPHATE 10 MG/1 ML VIAL ONE (09:21)
[2022-07-09] MEDS ORDERED: clonazePAM 0.5 MG TABLET ONE (09:21)
[2022-07-09] MEDS ORDERED: CLOPIDOGREL BISULFATE 75 MG TABLET (FP) ONE (09:21)
[2022-07-09] MEDS ORDERED: ASPIRIN COATED 81 MG TABLET.EC ONE (09:21)
[2022-07-09] MEDS ORDERED: ENOXAPARIN NA (PORCINE) 40 MG/0.4 ML DISP.SYRIN SQ ONE (09:22)
[2022-07-09] MEDS ORDERED: RANOLAZINE E.R. 500 MG TABLET (FP) ONE (09:22)
[2022-07-09] MEDS: ANASTROZOLE 1 MG TABLET PO SCH (09:37)
[2022-07-09] MEDS: ASPIRIN COATED 81 MG TABLET.EC PO SCH (09:37)
[2022-07-09] MEDS: DEXAMETHASONE SOD PHOSPHATE 10 MG/1 ML VIAL IVPUSH SCH (09:37)
[2022-07-09] MEDS: RANOLAZINE E.R. 500 MG TABLET (FP) PO SCH ×2 (09:38→22:41)
[2022-07-09] MEDS: ENOXAPARIN NA (PORCINE) 40 MG/0.4 ML DISP.SYRIN SQ SCH (09:38)
[2022-07-09] MEDS: clonazePAM 0.5 MG TABLET PO SCH ×2 (09:38→22:41)
[2022-07-09] MEDS: VENLAFAXINE HCL 75 MG E.R. CAPSULES PO SCH (09:38)
[2022-07-09] MEDS: CLOPIDOGREL BISULFATE 75 MG TABLET (FP) PO SCH (09:38)
[2022-07-09] MEDS: REMDESIVIR 100 MG in SODIUM CHLORIDE 250 ML IVPB SCH (10:03)
[2022-07-09] MEDS: ISOSORBIDE MONONITRATE 60 MG TAB.SR.24H (FP) PO SCH (17:19)
[2022-07-09] MEDS: ATORVASTATIN CA 40 MG TABLET (FP) PO SCH (22:41)
[2022-07-09] MEDS: QUEtiapine FUMARATE 25 MG TABLET PO SCH (22:41)
[2022-07-09] MEDS: MIRTAZAPINE 15 MG TABLET (FP) PO SCH (22:41)
[2022-07-10 00:32] VITALS: BMI 29.0
[2022-07-10 07:45] LABS: BASO % 0.2 % (0-2.0); HEMATOCRIT 32.5 % (32.4-45.2); HEMOGLOBIN 10.8 GM/dL (10.7-15.3); MCH 31.1 pg (25.7-33.7); MCHC 33.2 g/dl (32.0-36.0); MEAN CELL VOLUME 93.7 fl (80-96); MEAN PLT VOLUME 8.9 fl (7.5-11.1); MONO % 9.2 % (3.8-10.2); NEUT % 73.6 % (42.8-82.8); PLATELET COUNT 208 10^3/uL (134-434); RBC 3.47 M/mm3 (3.60-5.2); RDW 14.6 % (11.6-15.6); WHITE BLOOD COUNT 8.2 K/mm3 (4.0-10.0)
[2022-07-10 08:01] LABS: CALCIUM 8.3 mg/dL (8.5-10.1)
[2022-07-10 08:02] LABS: BLOOD UREA NITROGEN 28.1 mg/dL (7-18)
[2022-07-10 08:05] LABS: CREATININE 0.8 mg/dL (0.55-1.3)
[2022-07-10 08:06] LABS: BILIRUBIN,TOTAL 0.7 mg/dL (0.2-1)
[2022-07-10 08:07] LABS: TOT PROT 5.8 g/dl (6.4-8.2)
[2022-07-10] MEDS: ASPIRIN COATED 81 MG TABLET.EC PO SCH (10:46)
[2022-07-10] MEDS: RANOLAZINE E.R. 500 MG TABLET (FP) PO SCH ×2 (10:46→22:23)
[2022-07-10] MEDS: ENOXAPARIN NA (PORCINE) 40 MG/0.4 ML DISP.SYRIN SQ SCH (10:46)
[2022-07-10] MEDS: CLOPIDOGREL BISULFATE 75 MG TABLET (FP) PO SCH (10:47)
[2022-07-10] MEDS: DEXAMETHASONE SOD PHOSPHATE 10 MG/1 ML VIAL IVPUSH SCH (10:47)
[2022-07-10] MEDS: VENLAFAXINE HCL 75 MG E.R. CAPSULES PO SCH (10:47)
[2022-07-10] MEDS: clonazePAM 0.5 MG TABLET PO SCH ×2 (10:47→22:22)
[2022-07-10] MEDS: ANASTROZOLE 1 MG TABLET PO SCH (10:48)
[2022-07-10] MEDS: REMDESIVIR 100 MG in SODIUM CHLORIDE 250 ML IVPB SCH (10:48)
[2022-07-10 11:58] VITALS: RESP 18
[2022-07-10] MEDS: ISOSORBIDE MONONITRATE 60 MG TAB.SR.24H (FP) PO SCH (17:06)
[2022-07-10] MEDS: NITROFURANTOIN MACROCRYSTAL 50 MG CAPSULE (FP) PO SCH (17:06)
[2022-07-10] MEDS: ATORVASTATIN CA 40 MG TABLET (FP) PO SCH (22:24)
[2022-07-10] MEDS: MIRTAZAPINE 15 MG TABLET (FP) PO SCH (22:24)
[2022-07-10] MEDS: BUDESONIDE/FORMETEROL FUMARATE 160/4.5 mcg INHALER IH SCH (22:24)
[2022-07-10] MEDS: QUEtiapine FUMARATE 25 MG TABLET PO SCH (22:24)
[2022-07-11] MEDS: NITROFURANTOIN MACROCRYSTAL 50 MG CAPSULE (FP) PO SCH ×3 (00:40→11:01)
[2022-07-11] MEDS: ENOXAPARIN NA (PORCINE) 40 MG/0.4 ML DISP.SYRIN SQ SCH (09:33)
[2022-07-11] MEDS: VENLAFAXINE HCL 75 MG E.R. CAPSULES PO SCH (09:34)
[2022-07-11] MEDS: ANASTROZOLE 1 MG TABLET PO SCH (09:34)
[2022-07-11] MEDS: CLOPIDOGREL BISULFATE 75 MG TABLET (FP) PO SCH (09:34)
[2022-07-11] MEDS: clonazePAM 0.5 MG TABLET PO SCH (09:34)
[2022-07-11] MEDS: ASPIRIN COATED 81 MG TABLET.EC PO SCH (09:34)
[2022-07-11] MEDS: RANOLAZINE E.R. 500 MG TABLET (FP) PO SCH (09:35)
[2022-07-11] MEDS: DEXAMETHASONE SOD PHOSPHATE 10 MG/1 ML VIAL IVPUSH SCH (09:35)
[2022-07-11] MEDS: BUDESONIDE/FORMETEROL FUMARATE 160/4.5 mcg INHALER IH SCH (09:35)
[2022-07-11] MEDS: REMDESIVIR 100 MG in SODIUM CHLORIDE 250 ML IVPB SCH (10:27)
[2022-07-11 11:45] VITALS: BP 140/70; PULSE 56; TEMP 97.8
== END 2022-07-11 16:53 | disposition home or self-care (01) | DRG 177 ==
LOC: JER 13:38 → JERBED 17:24 → J4W 07-09 19:08
PROVIDERS: ADMIT Internal Medicine; ATTEND Internal Medicine
PROC: XW033E5 Introduction of Remdesivir Anti-infective into Peripheral Vein, Percutaneous Approach, New Technology Group 5 (ICD-10-PCS; principal; 2022-07-07)
PROC: 3E0333Z Introduction of Anti-inflammatory into Peripheral Vein, Percutaneous Approach (ICD-10-PCS; 2022-07-07)
DX: U07.1 COVID-19 (principal); J12.82 Pneumonia due to coronavirus disease 2019; J96.01 Acute respiratory failure with hypoxia; I24.8 Other forms of acute ischemic heart disease; N39.0 Urinary tract infection, site not specified; I50.32 Chronic diastolic (congestive) heart failure; F41.8 Other specified anxiety disorders; I11.0 Hypertensive heart disease with heart failure; I25.10 Atherosclerotic heart disease of native coronary artery without angina pectoris; E78.5 Hyperlipidemia, unspecified; E11.9 Type 2 diabetes mellitus without complications; K57.90 Diverticulosis of intestine, part unspecified, without perforation or abscess without bleeding; D64.9 Anemia, unspecified; K21.9 Gastro-esophageal reflux disease without esophagitis; M54.50 Low back pain, unspecified; I08.1 Rheumatic disorders of both mitral and tricuspid valves; B96.20 Unspecified Escherichia coli [E. coli] as the cause of diseases classified elsewhere; Z87.11 Personal history of peptic ulcer disease; Z95.1 Presence of aortocoronary bypass graft; Z85.3 Personal history of malignant neoplasm of breast
CPT/HCPCS: 0241U-QW; 36415; 71045-TC-FY; 80053; 80061; 81003; 82248; 82550; 82728; 82803; 83605; 83615; 83735; 84443; 84484; 85025; 85379; 85610; 85730; 86140; 87040; 87086; 87186; 93005; 93010; 99285-25; C9399; J1100

== ENCOUNTER 2022-08-16 18:53 | Inpatient (IN) | payer OTHER ==
[2022-08-16 21:32] LABS: BASO % 0.3 % (0-2.0); EOS % 1.3 % (0-4.5); HEMATOCRIT 35.9 % (32.4-45.2); HEMOGLOBIN 12.2 GM/dL (10.7-15.3); LYMPH % 23.7 % (8-40); MCH 32.3 pg (25.7-33.7); MEAN PLT VOLUME 8.9 fl (7.5-11.1); MONO % 6.5 % (3.8-10.2); NEUT % 68.2 % (42.8-82.8); PLATELET COUNT 203 10^3/uL (134-434); RBC 3.78 M/mm3 (3.60-5.2); RDW 15.4 % (11.6-15.6)
[2022-08-16 21:38] LABS: INR 1.04 (0.83-1.09); PROTHROMBIN TIME (PATIENT) 12.1 SEC (9.7-13.0)
[2022-08-16 21:41] LABS: ACTIVATED PTT 34.8 SECONDS (25.2-36.5)
[2022-08-16 21:53] LABS: CALCIUM 9.1 mg/dL (8.5-10.1)
[2022-08-16 21:54] LABS: ALBUMIN 3.7 g/dl (3.4-5.0); BLOOD UREA NITROGEN 20.4 mg/dL (7-18); EPI CELLS 30 /uL (0-25.1); HYALINE CASTS 1 /uL (0-3.1); MAGNESIUM 1.9 mg/dL (1.8-2.4); URINE APPEARANCE CLEAR; URINE BACTERIA 101 /uL (0-1359); URINE BILIRUBIN NEGATIVE (NEGATIVE); URINE COLOR YELLOW; URINE GLUCOSE (UA) NEGATIVE (NEGATIVE); URINE KETONE NEGATIVE (NEGATIVE); URINE LEUK ESTERASE 2+ (NEGATIVE); URINE NITRITE NEGATIVE (NEGATIVE); URINE PROTEIN TRACE (NEGATIVE); URINE WBC 83 /uL (0-25.8)
[2022-08-16 21:56] LABS: PHOSPHOROUS 3.5 mg/dL (2.5-4.9)
[2022-08-16 21:58] LABS: BILIRUBIN,TOTAL 0.4 mg/dL (0.2-1); CREATININE 0.9 mg/dL (0.55-1.3); TOT PROT 6.5 g/dl (6.4-8.2)
[2022-08-16 22:01] LABS: URINE RBC 33.7 /uL (0-23.9)
[2022-08-16] MEDS ORDERED: CEFTRIAXONE 1,000 MG in DEXTROSE 5%-WATER - 50 ML IVPB ONE (22:58)
[2022-08-17] MEDS ORDERED: CEFTRIAXONE 1 GM/50 ML BAG ONE (00:55)
[2022-08-17] MEDS ORDERED: ACETAMINOPHEN 325 MG TABLET (FP) PO ONE (06:33)
[2022-08-17] MEDS ORDERED: ACETAMINOPHEN 325 MG TABLET (FP) ONE (06:41)
[2022-08-17] MEDS ORDERED: ALBUTEROL SO4 HFA INHALER IH PRN (10:51)
[2022-08-17] MEDS ORDERED: NITROGLYCERIN SUBLINGUAL 1/150 0.4 MG TAB SL PRN (10:51)
[2022-08-17 11:34] VITALS: BMI 25.9
[2022-08-17] MEDS: INSULIN SLIDING SCALE (NOVOLOG) 1 VIAL SQ SCH ×3 (11:35→22:50)
[2022-08-17] MEDS ORDERED: ACETAMINOPHEN 325 MG TABLET (FP) PO PRN (16:42)
[2022-08-17] MEDS ORDERED: LACTATED RINGERS SOLUTION 1,000 ML/1,000 ML INFUS.BAG IV SCH (16:45)
[2022-08-17] MEDS: ISOSORBIDE MONONITRATE 60 MG TAB.SR.24H (FP) PO SCH (19:51)
[2022-08-17] MEDS ORDERED: CHLORHEXIDINE GLUCONATE 4% CLEANSER FOR DECOLONIZATION TP SCH ×2 (22:00)
[2022-08-17] MEDS ORDERED: MIRTAZAPINE 15 MG TABLET (FP) PO SCH (22:00)
[2022-08-17] MEDS ORDERED: PATIENT'S OWN MEDICATION (NON-FORMULARY) (Icosapent Ethyl [Vascepa] 1 GM Capsule) PO SCH (22:00)
[2022-08-17] MEDS ORDERED: QUEtiapine FUMARATE 25 MG TABLET PO SCH (22:00)
[2022-08-17] MEDS ORDERED: MUPIROCIN 2% TOPICAL OINTMENT FOR DECOLONIZATION NS SCH (22:00)
[2022-08-17] MEDS: RANOLAZINE E.R. 500 MG TABLET (FP) PO SCH (22:02)
[2022-08-17] MEDS: MUPIROCIN 2% TOPICAL OINTMENT FOR DECOLONIZATION NS SCH (22:02)
[2022-08-17] MEDS: BUDESONIDE/FORMETEROL FUMARATE 160/4.5 mcg INHALER IH SCH (22:03)
[2022-08-18] MEDS: INSULIN SLIDING SCALE (NOVOLOG) 1 VIAL SQ SCH ×4 (06:45→21:53)
[2022-08-18 07:08] LABS: BASO % 0.5 % (0-2.0); EOS % 4.2 % (0-4.5); HEMATOCRIT 34.3 % (32.4-45.2); HEMOGLOBIN 11.5 GM/dL (10.7-15.3); LYMPH % 50.3 % (8-40); MCH 31.7 pg (25.7-33.7); MCHC 33.5 g/dl (32.0-36.0); MEAN CELL VOLUME 94.6 fl (80-96); MEAN PLT VOLUME 8.5 fl (7.5-11.1); MONO % 9.3 % (3.8-10.2); NEUT % 35.7 % (42.8-82.8); PLATELET COUNT 189 10^3/uL (134-434); RBC 3.63 M/mm3 (3.60-5.2); RDW 15.6 % (11.6-15.6); WHITE BLOOD COUNT 7.6 K/mm3 (4.0-10.0)
[2022-08-18 07:35] LABS: ALBUMIN 3.4 g/dl (3.4-5.0); BLOOD UREA NITROGEN 10.8 mg/dL (7-18); CALCIUM 8.7 mg/dL (8.5-10.1); MAGNESIUM 1.9 mg/dL (1.8-2.4)
[2022-08-18 07:38] LABS: PHOSPHOROUS 4.2 mg/dL (2.5-4.9)
[2022-08-18 07:39] LABS: CREATININE 0.6 mg/dL (0.55-1.3)
[2022-08-18 07:40] LABS: BILIRUBIN,TOTAL 0.6 mg/dL (0.2-1); TOT PROT 5.9 g/dl (6.4-8.2)
[2022-08-18] MEDS ORDERED: VENLAFAXINE HCL 150 MG E.R. CAPSULE PO SCH (10:00)
[2022-08-18] MEDS ORDERED: ANASTROZOLE 1 MG TABLET PO SCH (10:00)
[2022-08-18] MEDS ORDERED: amLODIPine BESYLATE 2.5 MG TABLET (FP) PO SCH (10:00)
[2022-08-18] MEDS ORDERED: ALLOPURINOL 300 MG TABLET (FP) PO SCH (10:00)
[2022-08-18] MEDS: MUPIROCIN 2% TOPICAL OINTMENT FOR DECOLONIZATION NS SCH (10:47)
[2022-08-18] MEDS: RANOLAZINE E.R. 500 MG TABLET (FP) PO SCH ×2 (10:55→21:54)
[2022-08-18] MEDS: BUDESONIDE/FORMETEROL FUMARATE 160/4.5 mcg INHALER IH SCH ×2 (10:58→21:58)
[2022-08-18] MEDS ORDERED: LEVOTHYROXINE NA 25 MCG TABLET (FP) PO ONE (15:00)
[2022-08-18] MEDS: ISOSORBIDE MONONITRATE 60 MG TAB.SR.24H (FP) PO SCH (17:52)
[2022-08-18] MEDS ORDERED: ACETAMINOPHEN 325 MG TABLET (FP) PO PRN (20:12)
[2022-08-18] MEDS ORDERED: ALBUTEROL SO4 HFA INHALER IH PRN (20:12)
[2022-08-18] MEDS ORDERED: NITROGLYCERIN SUBLINGUAL 1/150 0.4 MG TAB SL PRN (20:12)
[2022-08-18] MEDS: QUEtiapine FUMARATE 25 MG TABLET PO SCH (21:54)
[2022-08-18] MEDS: MIRTAZAPINE 15 MG TABLET (FP) PO SCH (21:54)
[2022-08-18] MEDS: ATORVASTATIN CA 40 MG TABLET (FP) PO SCH (21:54)
[2022-08-18] MEDS ORDERED: ATORVASTATIN CA 40 MG TABLET (FP) PO SCH (22:00)
[2022-08-19] MEDS: INSULIN SLIDING SCALE (NOVOLOG) 1 VIAL SQ SCH ×4 (06:24→22:33)
[2022-08-19] MEDS: LEVOTHYROXINE NA 25 MCG TABLET (FP) PO SCH (06:25)
[2022-08-19] MEDS: ALLOPURINOL 300 MG TABLET (FP) PO SCH (09:58)
[2022-08-19] MEDS: ANASTROZOLE 1 MG TABLET PO SCH (09:59)
[2022-08-19] MEDS: RANOLAZINE E.R. 500 MG TABLET (FP) PO SCH ×2 (09:59→22:29)
[2022-08-19] MEDS ORDERED: VENLAFAXINE HCL 150 MG E.R. CAPSULE PO SCH (10:00)
[2022-08-19] MEDS ORDERED: amLODIPine BESYLATE 2.5 MG TABLET (FP) PO SCH (10:00)
[2022-08-19] MEDS: BUDESONIDE/FORMETEROL FUMARATE 160/4.5 mcg INHALER IH SCH ×2 (10:02→22:34)
[2022-08-19] MEDS ORDERED: VENLAFAXINE HCL 75 MG E.R. CAPSULES PO SCH (10:05)
[2022-08-19] MEDS: VENLAFAXINE HCL 75 MG E.R. CAPSULES PO SCH (10:16)
[2022-08-19 10:45] LABS: BASO % 0.7 % (0-2.0); EOS % 5.1 % (0-4.5); HEMATOCRIT 32.4 % (32.4-45.2); HEMOGLOBIN 11.2 GM/dL (10.7-15.3); LYMPH % 42.8 % (8-40); MCH 32.4 pg (25.7-33.7); MCHC 34.5 g/dl (32.0-36.0); MEAN CELL VOLUME 93.8 fl (80-96); MONO % 9.3 % (3.8-10.2); NEUT % 42.1 % (42.8-82.8); PLATELET COUNT 192 10^3/uL (134-434); RBC 3.45 M/mm3 (3.60-5.2); RDW 15.3 % (11.6-15.6)
[2022-08-19 11:09] LABS: CALCIUM 8.7 mg/dL (8.5-10.1)
[2022-08-19 11:10] LABS: ALBUMIN 3.3 g/dl (3.4-5.0); BLOOD UREA NITROGEN 10.8 mg/dL (7-18)
[2022-08-19 11:13] LABS: CREATININE 0.6 mg/dL (0.55-1.3)
[2022-08-19 11:14] LABS: BILIRUBIN,TOTAL 0.6 mg/dL (0.2-1); TOT PROT 5.8 g/dl (6.4-8.2)
[2022-08-19 14:01] VITALS: RESP 18
[2022-08-19] MEDS: ISOSORBIDE MONONITRATE 60 MG TAB.SR.24H (FP) PO SCH (17:47)
[2022-08-19] MEDS: MIRTAZAPINE 15 MG TABLET (FP) PO SCH (22:29)
[2022-08-19] MEDS: ATORVASTATIN CA 40 MG TABLET (FP) PO SCH (22:29)
[2022-08-19] MEDS: QUEtiapine FUMARATE 25 MG TABLET PO SCH (22:29)
[2022-08-20] MEDS: LEVOTHYROXINE NA 25 MCG TABLET (FP) PO SCH (06:44)
[2022-08-20] MEDS: INSULIN SLIDING SCALE (NOVOLOG) 1 VIAL SQ SCH ×3 (07:38→16:38)
[2022-08-20] MEDS: RANOLAZINE E.R. 500 MG TABLET (FP) PO SCH (09:04)
[2022-08-20] MEDS: VENLAFAXINE HCL 75 MG E.R. CAPSULES PO SCH (09:04)
[2022-08-20] MEDS: ANASTROZOLE 1 MG TABLET PO SCH (09:05)
[2022-08-20] MEDS: ALLOPURINOL 300 MG TABLET (FP) PO SCH (09:05)
[2022-08-20] MEDS: metoPROLOL SUCCINATE 25 MG TAB.SR.24H (FP) PO SCH ×2 (09:05→09:15)
[2022-08-20] MEDS: BUDESONIDE/FORMETEROL FUMARATE 160/4.5 mcg INHALER IH SCH (09:16)
[2022-08-20 14:28] VITALS: TEMP 98.1
[2022-08-20] MEDS: ISOSORBIDE MONONITRATE 60 MG TAB.SR.24H (FP) PO SCH (17:13)
[2022-08-20] MEDS ORDERED: INSULIN (NOVOLOG) ASPART 100 UNITS/ML 10ML VIAL ONE (18:34)
[2022-08-20 21:25] VITALS: BP 141/64; PULSE 82
== END 2022-08-20 21:34 | DRG 85 ==
LOC: JER 18:53 → JERBED 20:30 → JICU 08-17 10:04 → J6S 08-18 17:37
PROVIDERS: ADMIT Internal Medicine; ATTEND Internal Medicine
DX: S06.6X0A Traumatic subarachnoid hemorrhage without loss of consciousness, initial encounter (principal); U07.1 COVID-19; I10 Essential (primary) hypertension; E78.5 Hyperlipidemia, unspecified; E11.9 Type 2 diabetes mellitus without complications; E03.9 Hypothyroidism, unspecified; K57.90 Diverticulosis of intestine, part unspecified, without perforation or abscess without bleeding; L29.9 Pruritus, unspecified; K21.9 Gastro-esophageal reflux disease without esophagitis; F41.8 Other specified anxiety disorders; M54.50 Low back pain, unspecified; I25.119 Atherosclerotic heart disease of native coronary artery with unspecified angina pectoris; S00.03XA Contusion of scalp, initial encounter; S00.01XA Abrasion of scalp, initial encounter; W18.39XA Other fall on same level, initial encounter; Y92.098 Other place in other non-institutional residence as the place of occurrence of the external cause; Z95.1 Presence of aortocoronary bypass graft; Z87.11 Personal history of peptic ulcer disease; Z85.3 Personal history of malignant neoplasm of breast
CPT/HCPCS: 0241U-QW; 36415; 70450-TC; 70496-TC; 71045-TC-FY; 72125-TC; 72170-TC-FY; 80053; 81003; 82962; 83735; 84100; 84439; 84443; 84484; 85025; 85610; 85730; 87086; 93005; 93010; 94010; 97116-GP; 97162-GP; 99285-25; C9803-CS; U0003; U0005